=== PATIENT | male | born 1930 | race Caucasian/White ===

== ENCOUNTER 2016-05-21 11:48 | Inpatient (IN) ==
--- NOTE | 2016-05-21 12:18 | Emergency Department Note ---
Disposition Clinical Impression: Chest pain, Pulmonary embolism, Pulmonary hypertension, Frail elderly, Aortic aneurysm, Disease of prostate, Kidney disease, Elevated troponin, Abnormal EKG, Bladder disease Disposition: Admitted As Inpatient Condition: Fair General Adult HPI - General Chief complaint: ED General Medical Stated complaint: Sent from 's office/Seen for blood Clots Time Seen by Provider: 05/21/16 12:10 - History of Present Illness HPI Narrative: 85-year-old male who developed chest pain and was seen in the emergency department yesterday in the emergency department, he decided to leave the ED. He did have a chest CTA which showed pulmonary embolus. His primary care physician called him back and urged him to come back to the emergency department. Patient comes in today at the behest of his primary care physician with family members. The patient denies any abdominal pain vomiting or diarrhea no acute back pain. He states he has a history of chronic hematuria. He is not take blood thinners now. The patient has had no flank pain. No recent surgery or trauma. There is no history of confusion and headache neck stiffness or fever. There is no history of difficulty moving the arms or legs independently no leg swelling or pain or coughing up blood. The patient has not had blood clots in the past. There is no history of acute shortness of breath. The patient denies any chest pain now but did have chest pain yesterday. It is no history of fever. No history of bleeding. No history of recent trauma. Onset (ago): day(s) - Related Data Previous Rx's Medication Instructions Recorded Rivaroxaban [Xarelto] 15 mg PO BID 15 Days 05/21/16 Allergies Allergy/AdvReac Type Severity Reaction Status Date / Time No Known Allergies Allergy Verified 05/20/16 23:40 All systems ED: reviewed and negative except as stated. Past Medical History - Past Medical History Medical history: Reports: asthma, hyperlipidemia, hypertension, myocardial infarction Psychiatric history: Reports: anxiety, depression - Social History Smoking Status: Current every day smoker Smokeless Tobacco Status: No Alcohol use: Reports: occasionally Drug use: Reports: none Physical Exam - General Limitations: no limitations General appearance: alert, in no apparent distress - Head Head exam: atraumatic, normocephalic, normal inspection - Eye Eye exam: Present: normal appearance, PERRL, EOMI. Absent: scleral icterus, conjunctival injection, miosis, mydriasis - ENT ENT exam: normal exam, normal oropharynx, mucous membranes moist - Neck Neck exam: Present: normal inspection, full ROM, trachea midline - Chest Chest inspection: Present: symmetric chest wall rise. Absent: tenderness, rash - Respiratory Respiratory exam: Present: normal lung sounds bilaterally. Absent: respiratory distress - Cardiovascular Cardiovascular exam: Present: regular rate, irregular rhythm - Abdominal Exam Abdominal exam: Present: soft, Non-Tender. Absent: tenderness, distention, guarding, rebound, rigidity, pulsatile mass - Extremities Exam Extremities exam: Present: normal inspection, full ROM, normal capillary refill. Absent: tenderness, pedal edema, joint swelling, calf tenderness - Expanded Lower Extremity Exam Lower leg exam: Absent: Homans' sign Neurovascular/Tendon exam: Absent: motor deficit, sensory deficit, tendon deficit, extremity cold to touch - Back Exam Back exam: Present: normal inspection, full ROM. Absent: tenderness, CVA tenderness (R), CVA tenderness (L), vertebral tenderness - Neurological Exam Neurological exam: Present: alert, oriented X3, CN II-XII intact. Absent: motor sensory deficit - Psychiatric Psychiatric exam: Present: normal affect, normal mood - Skin Skin exam: Present: warm, dry, intact, normal color. Absent: rash, cyanosis, diaphoresis, erythema, pallor, mottled Course Vital Signs Temperature 97.8 F 05/21/16 12:13 Pulse Rate 60 05/21/16 12:13 Respiratory Rate 14 05/21/16 12:13 Blood Pressure 152/58 05/21/16 12:13 O2 Sat by Pulse Oximetry 99 05/21/16 12:13 Temperature 97.8 F 05/21/16 12:13 Pulse Rate 52 05/21/16 13:21 Respiratory Rate 14 05/21/16 13:21 Blood Pressure 152/65 05/21/16 13:21 O2 Sat by Pulse Oximetry 97 05/21/16 13:21 Oxygen Delivery Oxygen Delivery Room Air Medical Decision Making - [facility] Narrative Medical decision making narrative: The patient was given aspirin here, he has a pulmonary embolus, of note his CT scan shows multiple abnormalities, possible renal mass, aortic aneurysm, bladder abnormalities, the patient describes hematuria. Given his comorbidities and complaints of hematuria, caution is warranted regarding his anticoagulation therapy. The patient appears to be stable. He is not expressing chest pain now there is an element of right heart strain but the patient is not hypotensive or tachycardic. I have reviewed the case with the hospitalist on-call. The patient will certainly require admission for further multi-specialty evaluation and management. A urinalysis is pending. Anticoagulation per the hospitalist, she has recommended heparin recommended. Urinalysis pending. - Lab Data Lab results reviewed: Yes I reviewed the patient's lab results. Result diagrams: 05/21/16 12:35 05/21/16 12:35 Lab Results 05/21/16 05/21/16 05/21/16 Range/Units 12:35 12:35 12:35 WBC (4.3-11.1) K/mcL RBC (4.19-5.50) M/mcL Hgb (12.9-16.9) g/dL Hct (37.5-50.1) % MCV (83.0-100.0) fL MCH (28.0-33.3) pg MCHC (31.6-35.5) g/dL RDW (11.5-14.5) % Plt Count (140-400) K/mcL MPV (9.4-12.4) fL Immature Gran % (0-4) % Seg Neutrophils % % Lymphocytes % % Monocytes % % Eosinophils % % Basophils % % Neutrophils # (1.6-8.9) K/mcL Lymphocytes # (0.6-4.6) K/mcL Monocytes # (0.0-1.3) K/mcL Eosinophils # (0.0-0.6) K/mcL Basophils # (0.0-0.2) K/mcL PT 12.1 (9.4-12.1) Seconds INR 1.1 APTT 29.6 (26.0-36.0) Seconds Sodium (136-145) mEq/L Potassium (3.5-4.5) mEq/L Chloride (98-109) mEq/L Carbon Dioxide (19-29) mEq/L BUN (8-26) mg/dL Creatinine (0.72-1.25) mg/dL Est GFR ( Amer) (> 60) Est GFR (Non-Af Amer) (> 60) BUN/Creatinine Ratio (6-26) Glucose (70-99) mg/dL Calculated Osmolality (280-300) Calcium (8.6-10.8) mg/dL Total Bilirubin 0.5 (0.2-1.2) mg/dL Direct Bilirubin 0.2 (0.0-0.5) mg/dL Indirect Bilirubin 0.3 (0.0-1.2) mg/dL AST 20 (5-34) Units/L ALT 11 (0-55) Units/L Alkaline Phosphatase 52 (38-126) Units/L Troponin I (0-0.03) ng/mL B-Natriuretic Peptide 699 H (0-100) pg/mL Serum Total Protein 5.6 L (6.0-8.3) g/dL Albumin 3.1 L (3.5-5.0) g/dL Globulin 2.5 (2.4-3.5) g/dL Albumin/Globulin Ratio 1.2 (1.1-2.2) Lipase 14 (8-78) Units/L 05/21/16 05/21/16 05/21/16 Range/Units 12:35 12:35 12:35 WBC 7.5 (4.3-11.1) K/mcL RBC 3.62 L (4.19-5.50) M/mcL Hgb 11.7 L (12.9-16.9) g/dL Hct 35.2 L (37.5-50.1) % MCV 97.2 (83.0-100.0) fL MCH 32.3 (28.0-33.3) pg MCHC 33.2 (31.6-35.5) g/dL RDW 13.2 (11.5-14.5) % Plt Count 139 L (140-400) K/mcL MPV 10.4 (9.4-12.4) fL Immature Gran % 0.4 (0-4) % Seg Neutrophils % 62.6 % Lymphocytes % 24.6 % Monocytes % 8.9 % Eosinophils % 3.1 % Basophils % 0.4 % Neutrophils # 4.7 (1.6-8.9) K/mcL Lymphocytes # 1.9 (0.6-4.6) K/mcL Monocytes # 0.7 (0.0-1.3) K/mcL Eosinophils # 0.2 (0.0-0.6) K/mcL Basophils # 0.0 (0.0-0.2) K/mcL PT (9.4-12.1) Seconds INR APTT (26.0-36.0) Seconds Sodium 145 (136-145) mEq/L Potassium 3.8 (3.5-4.5) mEq/L Chloride 110 H (98-109) mEq/L Carbon Dioxide 23 (19-29) mEq/L BUN 20 (8-26) mg/dL Creatinine 0.97 (0.72-1.25) mg/dL Est GFR ( Amer) > 60 (> 60) Est GFR (Non-Af Amer) > 60 (> 60) BUN/Creatinine Ratio 21 (6-26) Glucose 101 H (70-99) mg/dL Calculated Osmolality 303 H (280-300) Calcium 9.0 (8.6-10.8) mg/dL Total Bilirubin (0.2-1.2) mg/dL Direct Bilirubin (0.0-0.5) mg/dL Indirect Bilirubin (0.0-1.2) mg/dL AST (5-34) Units/L ALT (0-55) Units/L Alkaline Phosphatase (38-126) Units/L Troponin I 0.63 H* (0-0.03) ng/mL B-Natriuretic Peptide (0-100) pg/mL Serum Total Protein (6.0-8.3) g/dL Albumin (3.5-5.0) g/dL Globulin (2.4-3.5) g/dL Albumin/Globulin Ratio (1.1-2.2) Lipase (8-78) Units/L - Radiology Data Radiology results reviewed: Yes I reviewed the patient's radiology results.
[2016-05-21 12:42] LABS: Basophils % 0.4 %; Eosinophils # 0.2 K/mcL (0.0-0.6); Eosinophils % 3.1 %; Hematocrit 35.2 % (37.5-50.1); Hemoglobin 11.7 g/dL (12.9-16.9); Immature Granulocytes % 0.4 % (0-4); Lymphocytes # 1.9 K/mcL (0.6-4.6); Lymphocytes % 24.6 %; Mean Corpuscular HGB Conc 33.2 g/dL (31.6-35.5); Mean Corpuscular Hemoglobin 32.3 pg (28.0-33.3); Mean Corpuscular Volume 97.2 fL (83.0-100.0); Mean Platelet Volume 10.4 fL (9.4-12.4); Monocytes # 0.7 K/mcL (0.0-1.3); Monocytes % 8.9 %; Neutrophils # 4.7 K/mcL (1.6-8.9); Platelet Count 139 K/mcL (140-400); Red Blood Count 3.62 M/mcL (4.19-5.50); Red Cell Distribution Width 13.2 % (11.5-14.5); Segmented Neutrophils % 62.6 %
[2016-05-21 12:49] LABS: INR 1.1; Prothrombin Time 12.1 Seconds (9.4-12.1)
[2016-05-21 12:52] LABS: Activated Partial Thrombo Time 29.6 Seconds (26.0-36.0)
[2016-05-21] MEDS ORDERED: Aspirin 81 MG TAB.CHEW PO ONE (12:53)
[2016-05-21 13:02] LABS: BUN/Creatinine Ratio 21 (6-26); Blood Urea Nitrogen 20 mg/dL (8-26); Carbon Dioxide 23 mEq/L (19-29); Chloride 110 mEq/L (98-109); Glucose 101 mg/dL (70-99); Osmolality,Calculated 303 (280-300); Potassium 3.8 mEq/L (3.5-4.5); Sodium 145 mEq/L (136-145); eGFR For African Americans > 60 (> 60); eGFR For Non-African Americans > 60 (> 60)
[2016-05-21 13:03] LABS: Albumin 3.1 g/dL (3.5-5.0); Albumin/Globulin Ratio 1.2 (1.1-2.2); Bilirubin,Direct 0.2 mg/dL (0.0-0.5); Bilirubin,Indirect 0.3 mg/dL (0.0-1.2); Bilirubin,Total 0.5 mg/dL (0.2-1.2); Globulin 2.5 g/dL (2.4-3.5); Total Protein 5.6 g/dL (6.0-8.3)
[2016-05-21] MEDS ORDERED: *HR* Heparin 5,000 UNIT/ML VIAL IVP ONE (14:26)
[2016-05-21] MEDS ORDERED: *HR* Heparin 5,000 UNIT/ML VIAL IVP PRN ×2 (14:26)
[2016-05-21] MEDS: Heparin 25,000 UNIT/500 ML D5W 25,000 UNIT/500 ML MLS IVC SCH (14:39)
[2016-05-21 14:44] LABS: Bilirubin,Urine Negative (Negative); Blood,Urine Large (Negative); Clarity,Urine Cloudy (Clear); Glucose,Urine (UA) Normal (Normal); Ketones,Urine Negative (Negative); Leukocyte Esterase,Urine Trace (Negative); Nitrite,Urine Negative (Negative); PH,Urine 5.5 pH Units (5.0-8.0); Protein,Urine 100 mg/dL (Neg-Trace); Specific Gravity,Urine > 1.030 (1.010-1.025); Urobilinogen,Urine Normal (Normal)
[2016-05-21 14:45] LABS: Color,Urine Brown (Yellow)
[2016-05-21] MEDS ORDERED: Acetaminophen 325 MG TABLET PO PRN (14:50)
[2016-05-21] MEDS ORDERED: Ondansetron 4 MG/2 ML VIAL IVP PRN (14:50)
[2016-05-21] MEDS ORDERED: Naloxone 0.4 MG/ML INJ IVP PRN (14:50)
--- NOTE | 2016-05-21 15:51 | Internal Med History&Physical ---
Date of Encounter: 05/21/16 Time of Encounter: 14:00 Assessment and Plan (1) Pulmonary embolism on right Current visit: Yes Status: Acute 05/21/16: Right sided pulmonary emboli more severe within the right lower lobe. Enlargement of the main pulmonary artery suggestive of pulmonary arterial hypertension. EKG reviewed by me: sinus bradycardia heart rate 54. Continue heparin drip due to mild hematuria. Check venous Doppler of lower extremities and echocardiogram. 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 (2) Elevated troponin Current visit: Yes Status: Acute Troponin is 2.63. EKG showed TWI I, AVL. Likely secondary to acute PE. Trend troponin. EKG in AM. Cardiac monitoring. Check echocardiogram. (3) Hematuria Current visit: Yes Status: Acute Patient reports intermittent hematuria for the past few months. CT of the abdomen and pelvis revealed urothelial thickening of the right renal pelvis. Trabeculated urinary bladder wall likely secondary to chronic bladder outlet obstruction, prostatomegaly Chest monitor. Hemoglobin is 11.7. Start Flomax. Primary hospitalist may consider consulting urology service for further workup. (4) Aortic aneurysm Current visit: Yes Status: Acute CT of the abdomen and pelvis revealed infrarenal abdominal aortic aneurysm, 3.6 cm in diameter. Recommended one-year follow-up. CAT scan. Patient denies any abdominal pain. Qualifiers: Aortic location: abdominal aorta Presence of rupture: without rupture Qualified Code(s): I71.4 - Abdominal aortic aneurysm, without rupture (5) Disease of prostate Current visit: Yes Status: Acute BPH. Flomax as tolerated. (6) Pulmonary hypertension Current visit: Yes Status: Acute CT angiogram of the chest showed suspected pulmonary hypertension. Check echocardiogram. Internal Medicine - H&P: HPI Chief complaint: left sided chest pain since yesterday Admitted From: Home Plans for Post Hospital Care: Home History of present illness: Mr. Merida is a 85 year old male with past medical history hypertension, CAD, dementia and tobacco use. He presented yesterday to our ED with a chief complaint of left-sided chest pain and was diagnosed with atrial fibrillation with RVR and acute pulmonary embolism. Patient refused admission and left AGAINST MEDICAL ADVICE. This morning, his primary care physician convinced him to come back to our ED. Yesterday night, patient woke up because of left-sided chest pain that radiated to his left arm. He took 3 pills of nitroglycerin without any relief. No shortness of breath. No syncope. No abdominal pain. No dysuria. No focal deficit. No headache. No history of prior intracranial bleeding. He also complains of intermittent chronic hematuria for months but it has worsened in the past 3 days. He had an episode of nephrolithiasis past but refused any treatment. No family history of DVT. In our ED, he was started on heparin drip. Past Med Surg Social Fam HX - Past Medical History Medical history: asthma, hyperlipidemia, hypertension, myocardial infarction Psychiatric history: anxiety, depression - Social History Smoking Status: Current every day smoker Smokeless Tobacco Status: No Alcohol use: occasionally Drug use: none Internal Medicine - H&P: Meds Albuterol Sulfate [Proair Hfa] 2 puff IH Q6H PRN 05/21/16 [History] Alprazolam [Xanax 1 MG Tablet] 1 mg PO QAM 05/21/16 [History] Aspirin [Lo-Dose Aspirin EC] 81 mg PO DAILY 05/21/16 [History] Atenolol [Tenormin] 50 mg PO DAILY 05/21/16 [History] Atorvastatin Calcium [Lipitor] 80 mg PO DAILY 05/21/16 [History] Citalopram [CeleXA] 20 mg PO DAILY 05/21/16 [History] Donepezil [Aricept] 5 mg PO HS 05/21/16 [History] Folic Acid 1 mg PO DAILY 05/21/16 [History] Ginkgo Biloba 120 mg PO DAILY 05/21/16 [History] Ibuprofen [Motrin] 800 mg PO BID 05/21/16 [History] Isosorbide DInitrate [Isosorbide Dinitrate] 20 mg PO TID 05/21/16 [History] Multivit-Min/FA/Lycopen/Lutein [Centrum Silver Tablet] 1 tab PO DAILY 05/21/16 [ History] PredniSONE [Deltasone] 20 mg PO DAILY 05/21/16 [History] Ranitidine HCl [Acid Fiberglass Roller] 150 mg PO BID 05/21/16 [History] Temazepam [Restoril] 30 mg PO HS 05/21/16 [History] TraZODone 100 mg PO HS 05/21/16 [History] Allergies No Known Allergies Allergy (Verified 05/20/16 23:40) All Systems PM: A 10-system review of systems was performed and is negative for pertinent findings except as documented above in the HPI. - Constitutional Vitals: Temp Pulse Resp BP Pulse Ox 97.8 F 52 0 0/0 97 05/21/16 12:13 05/21/16 13:21 05/21/16 14:51 05/21/16 14:51 05/21/16 13:21 General appearance: Present: cooperative, A&O X 3, pleasant, answers questions appropriately. Absent: no acute distress - Neck Neck exam general surgery: Present: supple, trachea midline. Absent: lymphadenopathy - Respiratory Respiratory exam: Present: rales ( bases) - Cardiovascular Cardiovascular exam: Present: RRR - GI/Abdominal GI/Abdominal exam: Present: normal bowel sounds, soft. Absent: distended, tenderness - Extremities Exam Extremities exam: Absent: pedal edema - Back Exam Back exam: Absent: CVA tenderness (L), CVA tenderness (R) - Neurological Exam Neurological exam: Present: alert, no focal deficits. Absent: facial droop, speech deficit - Skin Skin exam: Absent: rash Internal Med - H&P Results - Labs CBC & Chem 7: 05/21/16 12:35 05/21/16 12:35 Labs: Urine 05/21/16 Range/Units 14:30 Urine Color Brown (Yellow) Urine Clarity Cloudy A (Clear) Urine pH 5.5 (5.0-8.0) pH Units Ur Specific [place] > 1.030 H (1.010-1.025) Urine Protein 100 H (Neg-Trace) mg/dL Urine Glucose (UA) Normal (Normal) mg/dL
[2016-05-21] MEDS: Ipratropium/Albuterol Neb 3 ML IH SCH ×2 (16:33→21:29)
[2016-05-21] MEDS ORDERED: 0.9 % Sodium Chloride 2,000 ML ONE (18:58)
--- NOTE | 2016-05-21 19:29 | Urology - Consult Note ---
Date of Encounter: 05/21/16 Time of Encounter: 19:29 - Assessment and Plan (1) Right kidney stone Current Visit: Yes Status: Acute Assessment and plan: could be cause of hematuria. very large stone. will observe at this time. (2) Hematuria Current Visit: Yes Status: Acute Assessment and plan: Patient was prepped and draped in normal sterile fashion. A 11 mL's of lidocaine was instilled into the patient's urethra. I then placed the 24- Tristanian Bard hematuria catheter. I then manually irrigated the catheter with no clots returned. Patient was then hooked to continuous bladder irrigation with normal saline. Will continue with 3-way catheter. Okay to resume treatment for pulmonary embolism. We will observe closely. Urology CN:HPI Consult date: 05/21/16 Reason for consult Urology: Gross Hematuria Requesting physician: Seble Kohler History of present illness: Gilbert is an 85-year-old male with a history of admission secondary to pulmonary embolism. Patient was started on blood thinners and started to have worsening gross hematuria. He states over the past few weeks he has had some gross hematuria. He is known to me where in 2013 and diagnosed him with a large right-sided renal stone which was never treated. Patient is unsure why he never followed up to have this treated. He has not had any flank pain. Past Med Surg Social Fam HX - Past Medical History Medical history: asthma, hyperlipidemia, hypertension, myocardial infarction Psychiatric history: anxiety, depression - Social History Smoking Status: Current every day smoker Smokeless Tobacco Status: No Alcohol use: occasionally Drug use: none Medications and Allergies Albuterol Sulfate [Proair Hfa] 2 puff IH Q6H PRN 05/21/16 [History] Alprazolam [Xanax 1 MG Tablet] 1 mg PO QAM 05/21/16 [History] Aspirin [Lo-Dose Aspirin EC] 81 mg PO DAILY 05/21/16 [History] Atenolol [Tenormin] 50 mg PO DAILY 05/21/16 [History] Atorvastatin Calcium [Lipitor] 80 mg PO DAILY 05/21/16 [History] Citalopram [CeleXA] 20 mg PO DAILY 05/21/16 [History] Donepezil [Aricept] 5 mg PO HS 05/21/16 [History] Folic Acid 1 mg PO DAILY 05/21/16 [History] Ginkgo Biloba 120 mg PO DAILY 05/21/16 [History] Ibuprofen [Motrin] 800 mg PO BID 05/21/16 [History] Isosorbide DInitrate [Isosorbide Dinitrate] 20 mg PO TID 05/21/16 [History] Multivit-Min/FA/Lycopen/Lutein [Centrum Silver Tablet] 1 tab PO DAILY 05/21/16 [ History] PredniSONE [Deltasone] 20 mg PO DAILY 05/21/16 [History] Ranitidine HCl [Acid Electronics Mechanic] 150 mg PO BID 05/21/16 [History] Temazepam [Restoril] 30 mg PO HS 05/21/16 [History] TraZODone 100 mg PO HS 05/21/16 [History] Allergies No Known Allergies Allergy (Verified 05/20/16 23:40) Review of Systems - Constitutional no chills - EENT Nose, mouth and throat: no dizziness - Cardiovascular no chest pain - Respiratory as per HPI - Gastrointestinal no abdominal pain - Genitourinary as per HPI - Musculoskeletal no back pain - Integumentary no erythema - Neurological no confusion - Psychiatric no anxiety - Hematologic/Lymphatic no easy bleeding - Allergic/Immunologic no throat swelling Exam Initial Vital Signs Temp Pulse Resp BP Pulse Ox 97.8 F 60 14 152/58 99 05/21/16 12:13 05/21/16 12:13 05/21/16 12:13 05/21/16 12:13 05/21/16 12:13 - General physical appearance Present: well developed - Eyes Present: PERRL - ENT Present: normal nares - Neck Present: no masses - Respiratory Present: normal respiratory effort - Cardiovascular Cardiovascular exam IM: bradycardia - Abdomen Abdomen: Present: soft - Genitourinary normal penis with no external lesions - Integumentary Present: no rash - Neurologic Present: normal coordination Urology Results - Labs 05/21/16 12:35 05/21/16 12:35 Abnormal lab results RBC 3.62 M/mcL (4.19-5.50) L 05/21/16 12:35 Hgb 11.7 g/dL (12.9-16.9) L 05/21/16 12:35 Hct 35.2 % (37.5-50.1) L 05/21/16 12:35 Plt Count 139 K/mcL (140-400) L 05/21/16 12:35 Chloride 110 mEq/L (98-109) H 05/21/16 12:35 Glucose 101 mg/dL (70-99) H 05/21/16 12:35 Calculated Osmolality 303 (280-300) H 05/21/16 12:35 Troponin I 0.63 ng/mL (0-0.03) H* 05/21/16 12:35 B-Natriuretic Peptide 699 pg/mL (0-100) H 05/21/16 12:35 Serum Total Protein 5.6 g/dL (6.0-8.3) L 05/21/16 12:35 Albumin 3.1 g/dL (3.5-5.0) L 05/21/16 12:35 Ur Specimen Adequacy See below A 05/21/16 14:30 Urine Clarity Cloudy (Clear) A 05/21/16 14:30 Ur Specific [place] > 1.030 (1.010-1.025) H 05/21/16 14:30 Urine Protein 100 mg/dL (Neg-Trace) H 05/21/16 14:30 Urine Blood Large (Negative) H 05/21/16 14:30 Ur Leukocyte Esterase Trace (Negative) H 05/21/16 14:30 Ur Culture Indicated? YES (NO) A 05/21/16 14:30 All other labs normal. - Imaging CT scan - abdomen: image reviewed CT scan - pelvis: image reviewed Consult Discharge Plan - Plan Referrals: Pavan Maya Jr, MD [Primary Care Provider] -
[2016-05-21] MEDS: Finasteride 5 MG TABLET PO SCH (20:52)
[2016-05-21] MEDS: traZODone 50 MG TABLET PO SCH (21:03)
[2016-05-21] MEDS: Temazepam 15 MG CAPSULE PO PRN (22:53)
[2016-05-22] MEDS: Lidocaine OINT 35.44 GM TUBE TP PRN (01:21)
[2016-05-22] MEDS: Ipratropium/Albuterol Neb 3 ML IH SCH ×2 (03:37→10:51)
[2016-05-22 05:39] LABS: Basophils % 0.4 %; Eosinophils # 0.3 K/mcL (0.0-0.6); Eosinophils % 2.3 %; Hematocrit 33.3 % (37.5-50.1); Hemoglobin 10.9 g/dL (12.9-16.9); Immature Granulocytes % 0.5 % (0-4); Lymphocytes # 1.4 K/mcL (0.6-4.6); Lymphocytes % 12.3 %; Mean Corpuscular HGB Conc 32.7 g/dL (31.6-35.5); Mean Corpuscular Hemoglobin 31.5 pg (28.0-33.3); Mean Corpuscular Volume 96.2 fL (83.0-100.0); Mean Platelet Volume 11.1 fL (9.4-12.4); Monocytes # 0.9 K/mcL (0.0-1.3); Monocytes % 8.5 %; Neutrophils # 8.4 K/mcL (1.6-8.9); Platelet Count 132 K/mcL (140-400); Red Blood Count 3.46 M/mcL (4.19-5.50); Red Cell Distribution Width 13.1 % (11.5-14.5)
[2016-05-22 06:06] LABS: BUN/Creatinine Ratio 22 (6-26); Blood Urea Nitrogen 17 mg/dL (8-26); Calcium 8.7 mg/dL (8.6-10.8); Carbon Dioxide 23 mEq/L (19-29); Chloride 107 mEq/L (98-109); Glucose 122 mg/dL (70-99); Magnesium 1.4 mg/dL (1.6-2.6); Osmolality,Calculated 287 (280-300); Potassium 4.1 mEq/L (3.5-4.5); Sodium 137 mEq/L (136-145); eGFR For African Americans > 60 (> 60); eGFR For Non-African Americans > 60 (> 60)
--- NOTE | 2016-05-22 06:58 | Urology Progress Note ---
Date of Encounter: 05/22/16 Time of Encounter: 06:57 - Assessment and Plan (1) Right kidney stone Current Visit: Yes Status: Acute (2) Hematuria Current Visit: Yes Status: Acute Assessment and plan: stable on irrigation. will continue to observe. continue finasteride. Progress Note Narrative: doing well on irrigation. was confused last night and got up to use the bathroom and pulled slightly on cath. urine slightly pink on slow irrigation. Objective Initial Vital Signs Temp Pulse Resp BP Pulse Ox 97.8 F 60 14 152/58 99 05/21/16 12:13 05/21/16 12:13 05/21/16 12:13 05/21/16 12:13 05/21/16 12:13 - General physical appearance Present: well developed - Abdomen Present: soft - Genitourinary Present: other (urine light pink on slow irrigation) - Labs 05/22/16 05:12 05/22/16 05:12 Diabetes panel 05/22/16 Range/Units 05:12 Sodium 137 D (136-145) mEq/L Potassium 4.1 (3.5-4.5) mEq/L Chloride 107 (98-109) mEq/L Carbon Dioxide 23 (19-29) mEq/L BUN 17 (8-26) mg/dL Creatinine 0.78 (0.72-1.25) mg/dL Glucose 122 H (70-99) mg/dL Calcium 8.7 (8.6-10.8) mg/dL Calcium panel 05/22/16 Range/Units 05:12 Calcium 8.7 (8.6-10.8) mg/dL Pituitary panel 05/22/16 Range/Units 05:12 Sodium 137 D (136-145) mEq/L Potassium 4.1 (3.5-4.5) mEq/L Chloride 107 (98-109) mEq/L Carbon Dioxide 23 (19-29) mEq/L BUN 17 (8-26) mg/dL Creatinine 0.78 (0.72-1.25) mg/dL Glucose 122 H (70-99) mg/dL Calcium 8.7 (8.6-10.8) mg/dL Adrenal panel 05/22/16 Range/Units 05:12 Sodium 137 D (136-145) mEq/L Potassium 4.1 (3.5-4.5) mEq/L Chloride 107 (98-109) mEq/L Carbon Dioxide 23 (19-29) mEq/L BUN 17 (8-26) mg/dL Creatinine 0.78 (0.72-1.25) mg/dL Glucose 122 H (70-99) mg/dL Calcium 8.7 (8.6-10.8) mg/dL Consult Discharge Plan - Plan Referrals: Pavan Maya Jr, MD [Primary Care Provider] -
[2016-05-22] MEDS: predniSONE 20 MG TABLET PO SCH (07:49)
[2016-05-22] MEDS: Folic Acid 1 MG TABLET PO SCH (07:49)
[2016-05-22] MEDS: ALPRAZolam 1 MG TABLET PO SCH (07:49)
[2016-05-22] MEDS: Aspirin Enteric Coated 81 MG Tablet PO SCH (07:49)
[2016-05-22] MEDS: Finasteride 5 MG TABLET PO SCH (07:49)
--- NOTE | 2016-05-22 08:14 | Internal Med Progress Note ---
Date of Encounter: 05/22/16 Time of Encounter: 08:12 - Assessment and plan (1) Pulmonary embolism on right Current Visit: Yes Status: Acute Assessment and plan: Continue heparin drip and start Coumadin Monitor CBC due to hematuria High risk of complications from pulmonary emboli and hematuria (2) Bradycardia Current Visit: Yes Status: Acute Assessment and plan: Likely secondary to beta blockers Decreased the dose of Lopressor (3) Aortic aneurysm Current Visit: Yes Status: Acute Assessment and plan: Follow as outpatient with CT scan in a year Qualifiers: Aortic location: abdominal aorta Presence of rupture: without rupture Qualified Code(s): I71.4 - Abdominal aortic aneurysm, without rupture (4) Elevated troponin Current Visit: Yes Status: Acute Assessment and plan: Likely secondary to demand ischemia. First troponin was 0.63 and the second one 0.29 (5) Hematuria Current Visit: Yes Status: Acute Assessment and plan: Followed by urology Continue Cullen catheter with irrigation (6) Pulmonary hypertension Current Visit: Yes Status: Acute (7) Atrial fibrillation and flutter Current Visit: No Status: Acute Assessment and plan: Signed AGAINST MEDICAL ADVICE the day prior to admission when he presented with Dennise nielson with RVR likely provoked by pulmonary emboli Now is bradycardic Decrease metoprolol from 50 mediums twice a day down to 25 mg twice a day due to bradycardia Consider cardiology consult if worse (8) Nephrolithiasis Current Visit: Yes Status: Acute Assessment and plan: Has a large renal calculus on the right kidney Follow with urology as an outpatient - Time Spent With Patient Greater than 35 minutes - Subjective Interval history: Got confused last night, denies any chest pain, shortness of breath, no abdominal pain, no dysuria. Had chest pain on the left side upon admission but is asymptomatic at the moment. Hematuria is controlled at the moment. No diarrhea - Constitutional Vitals: Temp Pulse Resp BP Pulse Ox 98.1 F 72 16 161/92 96 05/22/16 04:18 05/22/16 04:18 05/22/16 04:18 05/22/16 04:18 05/22/16 07:58 General appearance: Present: cooperative, A&O X 3, pleasant, answers questions appropriately. Absent: no acute distress - Head Head exam: Present: atraumatic, normocephalic - Eye Eye exam: Present: PERRL, conjuntiva pink, sclera anicteric Pupils: Present: PERRL - Neck Neck exam general surgery: Present: supple, trachea midline. Absent: lymphadenopathy - Respiratory Respiratory exam: Present: CTAB. Absent: accessory muscle use, rales, rhonchi, wheezes - Cardiovascular Cardiovascular exam: Present: bradycardia, irregular rhythm, RRR, +S1, +S2. Absent: diastolic murmur, gallop, rubs, systolic murmur - GI/Abdominal GI/Abdominal exam: Present: normal bowel sounds, soft, no peritoneal signs. Absent: distended, tenderness - Extremities Exam Extremities exam: Present: warm, radial pulses palpable and symetrical. Absent : calf tenderness, cyanotic, pedal edema - Neurological Exam Neurological exam: Present: CN II-XII intact, oriented X3, no focal deficits. Absent: pronater drift, facial droop, speech deficit Additional comments: Cullen catheter in place - Skin Skin exam: Present: dry, intact Internal Medicine: Result - Labs CBC & Chem 7: 05/22/16 05:12 05/22/16 05:12 Labs: Short CBC 05/22/16 Range/Units 05:12 WBC 11.1 (4.3-11.1) K/mcL Hgb 10.9 L (12.9-16.9) g/dL Hct 33.3 L (37.5-50.1) % Plt Count 132 L (140-400) K/mcL Neutrophils # 8.4 (1.6-8.9) K/mcL BMP 05/22/16 05:12 Sodium 137 D Potassium 4.1 Chloride 107 Carbon Dioxide 23 BUN 17 Creatinine 0.78 Glucose 122 H Calcium 8.7 Cardiac Enzymes 05/22/16 Range/Units 05:12 Troponin I 0.29 H* (0-0.03) ng/mL Urine 05/21/16 Range/Units 14:30 Urine Color Brown (Yellow) Urine Clarity Cloudy A (Clear) Urine pH 5.5 (5.0-8.0) pH Units Ur Specific Lackey > 1.030 H (1.010-1.025) Urine Protein 100 H (Neg-Trace) mg/dL Urine Glucose (UA) Normal (Normal) mg/dL - ABG Interpretation ABG results: PT/INR, D-dimer PT 12.1 Seconds (9.4-12.1) 05/21/16 12:35 Consult Discharge Plan - Plan Referrals: Pavan Maya Jr, MD [Primary Care Provider] -
--- NOTE | 2016-05-22 11:20 | Electrocardiograph Report ---
[place] Test Date: 2016-05-21 Pat Name: Gilbert Merida Department: 105 Room: 2A12 Gender: M Extra Hand: : 1930 Requested By: Westley England Order Number: [id number] Reading MD: Jose Cruz Cortés MD Measurements Intervals [place] Rate: 130 P: [place]: 0 QRS: -14 QRSD: 101 T: 35 QT: 334 QTc: 411 Interpretive Statements ATRIAL FLUTTER/TACHYCARDIA WITH RAPID VENTRICULAR RESPONSE NONSPECIFIC ST \T\ T-WAVE ABNORMALITY ABNORMAL RHYTHM ECG Electronically Signed On 05-22-2016 11:18:31 EST by Jose Cruz Cortés MD
[2016-05-22] MEDS ORDERED: Albuterol 2.5 MG/3 ML NEBULIZER IH PRN (13:37)
--- NOTE | 2016-05-22 15:16 | ECHO - Doppler Report ---
Echocardiogram Name: Gilbert Merida Date of Study: 05/22/2016 Date: 1930 Ht: 70.0 in Medical Record#: [id number] Age: 85 Wt: 149.0 lb Gender: Male BSA: 1.84 Order #: [id number] Location: [facility] Room #: 2A12 Reading Physician: Jojo Perkins DO Angle Shear Operator: Hermila Laguna T Ordering Physician: Seble Kohler MD Primary Physician: Pavan Maya MD Indications: Arrhythmia Impressions: LVEF 55%. Normal left ventricular size and systolic function. Normal right ventricular size and function. Mild aortic regurgitation. Mild mitral regurgitation. No pulmonary hypertension. Left Ventricular Wall Motion: Rest Echo Findings All wall segments showed normal motion. Findings: Study Quality * Technically sub-optimal due to clinical status. ECG Findings * Sinus bradycardia with ventricular ectopy. Left Atrium * Normal left atrial size. Mitral Valve * Normal mitral valve structure. * No mitral stenosis. * Mild mitral regurgitation. Aortic Valve * Mild aortic regurgitation. * Aortic valve not well visualized. * No aortic stenosis. Tricuspid Valve * Tricuspid valve not well visualized. * Trace tricuspid regurgitation. Pulmonic Valve * Not well evaluated. Right Ventricle * Normal right ventricular structure and function. Right Atrium * Normal right atrial size. Left Ventricle * LVEF 55%. * Indeterminate diastolic function. * Normal LV chamber size, wall thickness and function. Interatrial Septum * Interatrial septum not well evaluated. Pulmonary Artery * Pulmonary artery not well visualized. IVC * The IVC is not well evaluated. Pericardium * There is no pericardial effusion present. Aorta * Normally sized aortic root. History Family History of CAD History of CAD/PTCA Myocardial Infarction Measurements: BP: 154/ 70 2D Normal Values IVSd: 1.00 cm 0.6 - 1.0 cm LVIDd: 5.30 cm 3.7 - 5.6 cm LVPWd: 1.00 cm 0.6 - 1.1 cm LVIDs: 3.60 cm 1.5 - 3.6 cm AO: 3.20 cm < 4.0 cm LA: 3.70 cm 2.0 - 4.0cm %FS: 32.10 cm >25 % LA volume: 99 Mitral Valve Dec Time:408.00 msec Peak E:.42 m/sec Peak A:.67 m/sec E/A Ratio:0.6 E/E' Lat Ratio:8.1 E/E' Med Ratio:9.8 Tricuspid Valve TV Regurg Peak Grad: 21.00mmHg TV Regurg Peak Olegario: 2.27m/sec Updated by Jojo Perkins on 05/22/2016 3:11:09 PM electronically signed on 05/22/2016 3:12:10 PM with status of Final Wall Motion Sanchez: 1=Normal, 2=Hypokinesis, 3=Akinesis, 4=Dyskinesis, 5=Aneurysmal, 6=Hyperkinetic, X=Not Visualized (Blank)=Missing
--- NOTE | 2016-05-22 16:22 | Venous Imaging Report ---
LE Venous Duplex Patient Name:Gilbert Merida Order Number:[id number] Procedure Date:05/21/2016 Date:1930ge:85 yrs Gender:Male Location:[facility] Room #: 2A12 Solutions Sales Executive:Adrienne Homerosharon Referring MD:Seble Kohler MD university controller:Pavan Maya MD Reading MD:Janusz Anders MD Primary Indications:acute PE Secondary Indications: Risk Factors Yes/No Anticoagulants Yes Impressions: Bilateral lower extremity: normal superficial and deep exam. Findings Venous Duplex Results: Right: Venous imaging of the lower extremity reveals full patency and normal vessel compressibility of the right distal iliac, right common femoral, right superficial femoral, right popliteal, right posterior tibial, right peroneal, right great saphenous and right lesser saphenous. Doppler signals in the evaluated veins were normal. Left: Venous imaging of the lower extremity reveals full patency and normal vessel compressibility of the left distal iliac, left common femoral, left superficial femoral, left popliteal, left posterior tibial, left peroneal, left great saphenous and left lesser saphenous. Doppler signals in the evaluated veins were normal. Prior Study: No prior study available for comparison. Lower Extremity Venous Duplex Side Vein Compress Spontaneous Flow Augment Diameter (cm) Depth (cm) Right Distal Iliac Normal Yes Phasic Yes Right Common Femoral Normal Yes Phasic Yes Right Superficial Femoral Normal Yes Phasic Yes Right Popliteal Normal Yes Phasic Yes Right Posterior Tibial Normal Yes Phasic Yes Right Peroneal Normal Yes Phasic Yes Right Great Saphenous Normal Yes Phasic Yes Right Lesser Saphenous Normal Yes Phasic Yes Left Distal Iliac Normal Yes Phasic Yes Left Common Femoral Normal Yes Phasic Yes Left Superficial Femoral Normal Yes Phasic Yes Left Popliteal Normal Yes Phasic Yes Left Posterior Tibial Normal Yes Phasic Yes Left Peroneal Normal Yes Phasic Yes Left Great Saphenous Normal Yes Phasic Yes Left Lesser Saphenous Normal Yes Phasic Yes Updated by Janusz Anders MD on 05/22/2016 4:16:18 PM electronically signed on 05/22/2016 4:16:33 PM with status of Final
[2016-05-22] MEDS: *HR* Warfarin 5 MG TABLET PO SCH (17:51)
[2016-05-22] MEDS ORDERED: Warfarin perPT PO PRN (18:00)
[2016-05-22] MEDS: traZODone 50 MG TABLET PO SCH (20:53)
[2016-05-22] MEDS: Heparin 25,000 UNIT/500 ML D5W 25,000 UNIT/500 ML MLS IVC SCH (20:55)
[2016-05-22] MEDS: Temazepam 15 MG CAPSULE PO PRN (21:54)
[2016-05-23 06:50] LABS: Hematocrit 33.3 % (37.5-50.1); Mean Corpuscular Hemoglobin 31.4 pg (28.0-33.3); Mean Corpuscular Volume 95.1 fL (83.0-100.0); Mean Platelet Volume 11.4 fL (9.4-12.4); Platelet Count 132 K/mcL (140-400)
[2016-05-23 06:53] LABS: INR 1.2; Prothrombin Time 13.3 Seconds (9.4-12.1)
--- NOTE | 2016-05-23 07:03 | Urology Progress Note ---
Date of Encounter: 05/23/16 Time of Encounter: 07:02 - Assessment and Plan (1) Right kidney stone Current Visit: Yes Status: Acute (2) Hematuria Current Visit: Yes Status: Acute Assessment and plan: will reeval this afternoon. continue CBI at this time. Progress Note Narrative: sp cath placement for hematuria. patient remiains confused. Objective Initial Vital Signs Temp Pulse Resp BP Pulse Ox 97.8 F 60 14 152/58 99 05/21/16 12:13 05/21/16 12:13 05/21/16 12:13 05/21/16 12:13 05/21/16 12:13 - Abdomen Present: soft - Genitourinary Present: other (urine slightly bloody in tubing on medium drip. ) - Labs 05/23/16 05:18 05/22/16 05:12 Consult Discharge Plan - Plan Referrals: Pavan Maya Jr, MD [Primary Care Provider] -
[2016-05-23 07:08] LABS: BUN/Creatinine Ratio 23 (6-26); Blood Urea Nitrogen 18 mg/dL (8-26); Calcium 9.1 mg/dL (8.6-10.8); Carbon Dioxide 27 mEq/L (19-29); Chloride 105 mEq/L (98-109); Glucose 108 mg/dL (70-99); Osmolality,Calculated 292 (280-300); Potassium 4.3 mEq/L (3.5-4.5); Sodium 140 mEq/L (136-145); eGFR For African Americans > 60 (> 60); eGFR For Non-African Americans > 60 (> 60)
[2016-05-23] MEDS: Aspirin Enteric Coated 81 MG Tablet PO SCH (07:48)
[2016-05-23] MEDS: Folic Acid 1 MG TABLET PO SCH (07:48)
[2016-05-23] MEDS: predniSONE 20 MG TABLET PO SCH (07:48)
[2016-05-23] MEDS: ALPRAZolam 1 MG TABLET PO SCH (07:48)
[2016-05-23] MEDS: Finasteride 5 MG TABLET PO SCH (07:48)
--- NOTE | 2016-05-23 09:04 | Internal Med Progress Note ---
Date of Encounter: 05/23/16 Time of Encounter: 09:02 - Assessment and plan (1) Pulmonary embolism on right Current Visit: Yes Status: Acute Assessment and plan: Continue heparin drip and Coumadin Keep APTT close to 50 Monitor CBC due to hematuria High risk of complications from pulmonary emboli and hematuria (2) Bradycardia Current Visit: Yes Status: Acute Assessment and plan: Likely secondary to beta blockers Decreased dose of Beta nathanael, the patient takes atenolol 50 mg at home start 25 mg in the morning (3) Aortic aneurysm Current Visit: Yes Status: Acute Assessment and plan: Follow as outpatient with CT scan in a year Qualifiers: Aortic location: abdominal aorta Presence of rupture: without rupture Qualified Code(s): I71.4 - Abdominal aortic aneurysm, without rupture (4) Elevated troponin Current Visit: Yes Status: Acute Assessment and plan: Likely secondary to demand ischemia. First troponin was 0.63 and the second one 0.29 (5) Hematuria Current Visit: Yes Status: Acute Assessment and plan: Followed by urology Continue Cullen catheter with irrigation (6) Pulmonary hypertension Current Visit: Yes Status: Acute (7) Atrial fibrillation and flutter Current Visit: No Status: Acute Assessment and plan: Signed AGAINST MEDICAL ADVICE the day prior to admission when he presented with A. fib with RVR likely provoked by pulmonary emboli Still bradycardic Decrease atenolol down to 25 mg daily due to bradycardia Consider cardiology consult if worse (8) Nephrolithiasis Current Visit: Yes Status: Acute Assessment and plan: Has a large renal calculus on the right kidney Follow with urology as an outpatient - Time Spent With Patient Greater than 35 minutes - Subjective Interval history: Cullen catheter is still showing signs of bleeding. Confused at times, denies any chest pain, shortness of breath, no abdominal pain , no dysuria. Had chest pain on the left side upon admission but is asymptomatic at the moment. No diarrhea - Constitutional Vitals: Temp Pulse Resp BP Pulse Ox 97.7 F 50 14 167/77 97 05/23/16 07:01 05/23/16 07:01 05/23/16 07:01 05/23/16 07:01 05/23/16 07:56 General appearance: Present: cooperative, A&O X 3, pleasant, underweight, answers questions appropriately. Absent: no acute distress - Head Head exam: Present: atraumatic, normocephalic - Eye Eye exam: Present: PERRL, conjuntiva pink, sclera anicteric Pupils: Present: PERRL - Neck Neck exam general surgery: Present: supple, trachea midline. Absent: lymphadenopathy - Respiratory Respiratory exam: Present: decreased breath sounds, CTAB. Absent: accessory muscle use, rales, rhonchi, wheezes - Cardiovascular Cardiovascular exam: Present: RRR, +S1, +S2. Absent: diastolic murmur, gallop, rubs, systolic murmur - GI/Abdominal GI/Abdominal exam: Present: distended, normal bowel sounds, soft, no peritoneal signs. Absent: tenderness - Extremities Exam Extremities exam: Present: warm, radial pulses palpable and symetrical. Absent : calf tenderness, cyanotic, pedal edema - Neurological Exam Neurological exam: Present: CN II-XII intact, oriented X3, no focal deficits. Absent: pronater drift, facial droop, speech deficit - Skin Skin exam: Present: dry, intact Additional comments: Cullen catheter in place with pinkish urine Internal Medicine: Result - Labs CBC & Chem 7: 05/23/16 05:18 05/23/16 05:18 Labs: Short CBC 05/23/16 Range/Units 05:18 WBC 11.2 H (4.3-11.1) K/mcL Hgb 11.0 L (12.9-16.9) g/dL Hct 33.3 L (37.5-50.1) % Plt Count 132 L (140-400) K/mcL BMP 05/23/16 05:18 Sodium 140 Potassium 4.3 Chloride 105 Carbon Dioxide 27 BUN 18 Creatinine 0.77 Glucose 108 H Calcium 9.1 - ABG Interpretation ABG results: PT/INR, D-dimer PT 13.3 Seconds (9.4-12.1) H 05/23/16 05:18 Consult Discharge Plan - Plan Referrals: Pavan Maya Jr, MD [Primary Care Provider] -
[2016-05-23] MEDS ORDERED: Sennosides/Docusate Sodium TABLET PO PRN (12:01)
--- NOTE | 2016-05-23 15:05 | Electrocardiograph Report ---
[address] [address] Test Date: 2016-05-22 Pat Name: Gilbert Merida Department: 112 Room: 2A12 Gender: M Padding Machine Operator: : 1930 Requested By: Tushar Min Order Number: [id number] Reading MD: Chanel Richey Measurements Intervals [place] Rate: 65 P: 61 OR: 202 QRS: -24 QRSD: 108 T: -4 QT: 432 QTc: 444 Interpretive Statements SINUS RHYTHM WITH OCCASIONAL VENTRICULAR PREMATURE COMPLEXES WITH OCCASIONAL SUPRAVENTRICULAR PREMATURE COMPLEXES BORDERLINE LEFT AXIS DEVIATION Electronically Signed On 05-23-2016 15:03:48 EST by Chanel Richey
--- NOTE | 2016-05-23 15:26 | Electrocardiograph Report ---
[place] [address] Test Date: 2016-05-21 Pat Name: Gilbert Merida Department: 104 Room: 2A12 Gender: M Dry Wall Applicator: : 1930 Requested By: Tushar Min Order Number: [id number] Reading MD: Chanel Richey Measurements Intervals [place] Rate: 54 P: 234 TX: 179 QRS: 203 QRSD: 105 T: 180 QT: 436 QTc: 423 Interpretive Statements SINUS BRADYCARDIA RIGHT AND LEFT ARM LEADS REVERSED PLEASE REPEAT ECG Electronically Signed On 05-23-2016 15:24:18 EST by Chanel Richey
--- NOTE | 2016-05-23 15:32 | Electrocardiograph Report ---
[place] [address] Test Date: 2016-05-22 Pat Name: Gilbert Merida Department: 112 Room: 2A12 Gender: M Supervisor [employer]: : 1930 Requested By: Seble Kohler Order Number: [id number] Reading MD: Chanel Richey Measurements Intervals [place] Rate: 55 P: 40 UT: 225 QRS: -18 QRSD: 107 T: 28 QT: 473 QTc: 461 Interpretive Statements SINUS BRADYCARDIA WITH FIRST DEGREE AV BLOCK WITH OCCASIONAL VENTRICULAR PREMATURE COMPLEXES PROLONGED QT INTERVAL Electronically Signed On 05-23-2016 15:30:49 EST by Chanel Richey
[2016-05-23] MEDS ORDERED: Nitroglycerin 0.4 MG TAB.SUBL SL PRN (16:43)
--- NOTE | 2016-05-23 18:22 | Event Note ---
Date of Encounter: 05/23/16 Time of Encounter: 18:22 patient seen. has had some clots earlier this afternoon Manually irrigated with NS with small clots returned. irrigated well. light pink on slow irrigation
[2016-05-23] MEDS: *HR* Warfarin 5 MG TABLET PO SCH (18:32)
[2016-05-23] MEDS: traZODone 50 MG TABLET PO SCH (20:19)
[2016-05-23] MEDS: Lidocaine OINT 35.44 GM TUBE TP PRN (20:25)
[2016-05-23] MEDS ORDERED: 0.9 % Sodium Chloride 1,000 ML ONE (21:09)
[2016-05-23] MEDS: Temazepam 15 MG CAPSULE PO PRN (21:10)
[2016-05-24 01:12] LABS: Hematocrit 31.5 % (37.5-50.1); Hemoglobin 10.7 g/dL (12.9-16.9); Mean Corpuscular Hemoglobin 31.8 pg (28.0-33.3); Mean Corpuscular Volume 93.8 fL (83.0-100.0); Mean Platelet Volume 10.7 fL (9.4-12.4); Platelet Count 131 K/mcL (140-400); Red Blood Count 3.36 M/mcL (4.19-5.50)
[2016-05-24 01:18] LABS: INR 1.3; Prothrombin Time 14.3 Seconds (9.4-12.1)
--- NOTE | 2016-05-24 08:11 | Internal Med Progress Note ---
Date of Encounter: 05/24/16 Time of Encounter: 08:11 - Assessment and plan (1) Pulmonary embolism on right Current Visit: Yes Status: Acute Assessment and plan: Continue heparin drip and Coumadin INR is 1.3 Keep APTT close to 50 Monitor CBC due to hematuria High risk of complications from pulmonary emboli and hematuria (2) Bradycardia Current Visit: Yes Status: Acute Assessment and plan: Likely secondary to beta blockers Decreased dose of Beta nathanael, the patient takes atenolol 50 mg at home started 25 mg daily today (3) Aortic aneurysm Current Visit: Yes Status: Acute Assessment and plan: Follow as outpatient with CT scan in a year Qualifiers: Aortic location: abdominal aorta Presence of rupture: without rupture Qualified Code(s): I71.4 - Abdominal aortic aneurysm, without rupture (4) Elevated troponin Current Visit: Yes Status: Acute Assessment and plan: Likely secondary to demand ischemia. First troponin was 0.63 and the second one 0.29 (5) Hematuria Current Visit: Yes Status: Acute Assessment and plan: Followed by urology Still having hematuria Continue Cullen catheter with irrigation (6) Pulmonary hypertension Current Visit: Yes Status: Acute (7) Atrial fibrillation and flutter Current Visit: No Status: Acute Assessment and plan: Signed AGAINST MEDICAL ADVICE the day prior to admission when he presented with A. fib with RVR likely provoked by pulmonary emboli Stable at the moment Decreased atenolol down to 25 mg daily due to bradycardia Consider cardiology consult if worse (8) Nephrolithiasis Current Visit: Yes Status: Acute Assessment and plan: Has a large renal calculus on the right kidney Follow with urology as an outpatient - Time Spent With Patient Greater than 35 minutes - Subjective Interval history: Cullen catheter is still having urine that contains blood. Confused at times, denies any chest pain, shortness of breath, no abdominal pain , no dysuria. Had chest pain on the left side upon admission but is asymptomatic at the moment. No diarrhea - Constitutional Vitals: Temp Pulse Resp BP Pulse Ox 97.6 F 59 16 177/90 99 05/24/16 07:06 05/24/16 07:06 05/24/16 07:06 05/24/16 07:06 05/24/16 07:06 General appearance: Present: cooperative, A&O X 3, pleasant, underweight, answers questions appropriately. Absent: no acute distress - Head Head exam: Present: atraumatic, normocephalic - Eye Eye exam: Present: PERRL, conjuntiva pink, sclera anicteric Pupils: Present: PERRL - Neck Neck exam general surgery: Present: supple, trachea midline. Absent: lymphadenopathy - Respiratory Respiratory exam: Present: CTAB. Absent: accessory muscle use, rales, rhonchi, wheezes - Cardiovascular Cardiovascular exam: Present: RRR, +S1, +S2. Absent: diastolic murmur, gallop, rubs, systolic murmur - GI/Abdominal GI/Abdominal exam: Present: normal bowel sounds, soft, no peritoneal signs. Absent: distended, tenderness - Extremities Exam Extremities exam: Present: warm, radial pulses palpable and symetrical. Absent : calf tenderness, cyanotic, pedal edema - Neurological Exam Neurological exam: Present: CN II-XII intact, oriented X3, no focal deficits. Absent: pronater drift, facial droop, speech deficit - Skin Skin exam: Present: dry, intact Additional comments: Cullen catheter in place, urine still showing signs of hemorrhage Internal Medicine: Result - Labs CBC & Chem 7: 05/24/16 00:58 05/23/16 05:18 Labs: Short CBC 05/24/16 Range/Units 00:58 WBC 12.3 H (4.3-11.1) K/mcL Hgb 10.7 L (12.9-16.9) g/dL Hct 31.5 L (37.5-50.1) % Plt Count 131 L (140-400) K/mcL Cardiac Enzymes 05/23/16 05/23/16 Range/Units 15:53 18:44 Troponin I 0.12 H* 0.11 H* (0-0.03) ng/mL - ABG Interpretation ABG results: PT/INR, D-dimer PT 14.3 Seconds (9.4-12.1) H 05/24/16 00:58 Consult Discharge Plan - Plan Referrals: Pavan Maya Jr, MD [Primary Care Provider] -
[2016-05-24] MEDS: ALPRAZolam 1 MG TABLET PO SCH (08:37)
[2016-05-24] MEDS: Folic Acid 1 MG TABLET PO SCH (08:37)
[2016-05-24] MEDS: predniSONE 20 MG TABLET PO SCH (08:37)
[2016-05-24] MEDS: Aspirin Enteric Coated 81 MG Tablet PO SCH (08:37)
[2016-05-24] MEDS: Finasteride 5 MG TABLET PO SCH (08:37)
--- NOTE | 2016-05-24 10:38 | Urology Progress Note ---
Date of Encounter: 05/24/16 Time of Encounter: 10:37 - Assessment and Plan (1) Right kidney stone Current Visit: Yes Status: Acute (2) Hematuria Current Visit: Yes Status: Acute Assessment and plan: may be able to hold irrigation tomorrow. will watch closely. Progress Note Narrative: patient seen. urine better on slow drip. Objective Initial Vital Signs Temp Pulse Resp BP Pulse Ox 97.8 F 60 14 152/58 99 05/21/16 12:13 05/21/16 12:13 05/21/16 12:13 05/21/16 12:13 05/21/16 12:13 - General physical appearance Present: well developed - Abdomen Present: soft - Genitourinary Present: other (urine slight pink on slow drip) - Labs 05/24/16 00:58 05/23/16 05:18 Consult Discharge Plan - Plan Referrals: Pavan Maya Jr, MD [Primary Care Provider] -
[2016-05-24] MEDS: Heparin 25,000 UNIT/500 ML D5W 25,000 UNIT/500 ML MLS IVC SCH (14:15)
[2016-05-24] MEDS: *HR* Warfarin 5 MG TABLET PO SCH (17:16)
[2016-05-24] MEDS: traZODone 50 MG TABLET PO SCH (19:55)
[2016-05-24] MEDS: Temazepam 15 MG CAPSULE PO PRN (19:55)
[2016-05-25 06:26] LABS: Hematocrit 30.7 % (37.5-50.1); Hemoglobin 10.2 g/dL (12.9-16.9); Mean Corpuscular HGB Conc 33.2 g/dL (31.6-35.5); Mean Corpuscular Volume 96.2 fL (83.0-100.0); Mean Platelet Volume 11.4 fL (9.4-12.4); Platelet Count 133 K/mcL (140-400); Red Blood Count 3.19 M/mcL (4.19-5.50); Red Cell Distribution Width 13.1 % (11.5-14.5)
[2016-05-25 06:35] LABS: Activated Partial Thrombo Time 41.8 Seconds (26.0-36.0)
[2016-05-25 06:36] LABS: INR 2.2; Prothrombin Time 24.3 Seconds (9.4-12.1)
[2016-05-25 06:41] LABS: BUN/Creatinine Ratio 33 (6-26); Blood Urea Nitrogen 26 mg/dL (8-26); Calcium 8.7 mg/dL (8.6-10.8); Carbon Dioxide 28 mEq/L (19-29); Chloride 105 mEq/L (98-109); Glucose 108 mg/dL (70-99); Osmolality,Calculated 295 (280-300); Sodium 140 mEq/L (136-145); eGFR For African Americans > 60 (> 60); eGFR For Non-African Americans > 60 (> 60)
[2016-05-25] MEDS: Heparin 25,000 UNIT/500 ML D5W 25,000 UNIT/500 ML MLS IVC SCH (08:34)
[2016-05-25] MEDS: ALPRAZolam 1 MG TABLET PO SCH (08:42)
[2016-05-25] MEDS: predniSONE 20 MG TABLET PO SCH (08:42)
[2016-05-25] MEDS: Aspirin Enteric Coated 81 MG Tablet PO SCH (08:43)
[2016-05-25] MEDS: Folic Acid 1 MG TABLET PO SCH (08:43)
[2016-05-25] MEDS: Finasteride 5 MG TABLET PO SCH (08:43)
--- NOTE | 2016-05-25 09:47 | Urology Progress Note ---
Date of Encounter: 05/25/16 Time of Encounter: 09:46 - Assessment and Plan (1) Right kidney stone Current Visit: Yes Status: Acute (2) Hematuria Current Visit: Yes Status: Acute Assessment and plan: resolving. plan on removing cath tomorrow. Progress Note Narrative: patient seen. urine clear off irrigation. Objective Initial Vital Signs Temp Pulse Resp BP Pulse Ox 97.8 F 60 14 152/58 99 05/21/16 12:13 05/21/16 12:13 05/21/16 12:13 05/21/16 12:13 05/21/16 12:13 - General physical appearance Present: well developed - Abdomen Present: soft - Labs 05/25/16 05:38 05/25/16 05:38 Diabetes panel 05/25/16 Range/Units 05:38 Sodium 140 (136-145) mEq/L Potassium 4.0 (3.5-4.5) mEq/L Chloride 105 (98-109) mEq/L Carbon Dioxide 28 (19-29) mEq/L BUN 26 (8-26) mg/dL Creatinine 0.78 (0.72-1.25) mg/dL Glucose 108 H (70-99) mg/dL Calcium 8.7 (8.6-10.8) mg/dL Calcium panel 05/25/16 Range/Units 05:38 Calcium 8.7 (8.6-10.8) mg/dL Pituitary panel 05/25/16 Range/Units 05:38 Sodium 140 (136-145) mEq/L Potassium 4.0 (3.5-4.5) mEq/L Chloride 105 (98-109) mEq/L Carbon Dioxide 28 (19-29) mEq/L BUN 26 (8-26) mg/dL Creatinine 0.78 (0.72-1.25) mg/dL Glucose 108 H (70-99) mg/dL Calcium 8.7 (8.6-10.8) mg/dL Adrenal panel 05/25/16 Range/Units 05:38 Sodium 140 (136-145) mEq/L Potassium 4.0 (3.5-4.5) mEq/L Chloride 105 (98-109) mEq/L Carbon Dioxide 28 (19-29) mEq/L BUN 26 (8-26) mg/dL Creatinine 0.78 (0.72-1.25) mg/dL Glucose 108 H (70-99) mg/dL Calcium 8.7 (8.6-10.8) mg/dL Consult Discharge Plan - Plan Referrals: Pavan Maya Jr, MD [Primary Care Provider] - (web request)
--- NOTE | 2016-05-25 10:41 | Internal Med Progress Note ---
Date of Encounter: 05/25/16 Time of Encounter: 10:38 - Assessment and plan (1) Pulmonary embolism on right Current Visit: Yes Status: Acute Assessment and plan: Discontinue heparin drip May continue Coumadin INR is 2.2 Monitor CBC due to hematuria If hematuria does not improve, an IVC filter should be considered High risk of complications from pulmonary emboli and hematuria (2) Bradycardia Current Visit: Yes Status: Acute Assessment and plan: Likely secondary to beta blockers Decreased dose of Beta nathanael, the patient takes atenolol 50 mg at home Reduced dose of atenolol down to 25 mg daily (3) Aortic aneurysm Current Visit: Yes Status: Acute Assessment and plan: Follow as outpatient with CT scan in a year Qualifiers: Aortic location: abdominal aorta Presence of rupture: without rupture Qualified Code(s): I71.4 - Abdominal aortic aneurysm, without rupture (4) Elevated troponin Current Visit: Yes Status: Acute Assessment and plan: Likely secondary to demand ischemia. First troponin was 0.63 and the second one 0.29 (5) Hematuria Current Visit: Yes Status: Acute Assessment and plan: Followed by urology Still having hematuria Continue Cullen catheter with irrigation (6) Pulmonary hypertension Current Visit: Yes Status: Acute (7) Atrial fibrillation and flutter Current Visit: No Status: Acute Assessment and plan: Signed AGAINST MEDICAL ADVICE the day prior to admission when he presented with A. fib with RVR likely provoked by pulmonary emboli Stable at the moment Decreased atenolol down to 25 mg daily due to bradycardia Consider cardiology consult if worse (8) Nephrolithiasis Current Visit: Yes Status: Acute Assessment and plan: Has a large renal calculus on the right kidney Follow with urology as an outpatient - Time Spent With Patient Greater than 35 minutes - Subjective Interval history: Hematuria is worse than yesterday. Heparin drip was discontinued. Confused at times, denies any chest pain, shortness of breath, no abdominal pain , no dysuria. Had chest pain on the left side upon admission but is asymptomatic at the moment. No diarrhea - Constitutional Vitals: Temp Pulse Resp BP Pulse Ox 97.7 F 57 18 149/79 97 05/25/16 07:21 05/25/16 07:21 05/25/16 07:21 05/25/16 07:21 05/25/16 07:21 General appearance: Present: cooperative, A&O X 3, pleasant, underweight, answers questions appropriately. Absent: no acute distress - Head Head exam: Present: atraumatic, normocephalic - Eye Eye exam: Present: PERRL, conjuntiva pink, sclera anicteric Pupils: Present: PERRL - Neck Neck exam general surgery: Present: supple, trachea midline. Absent: lymphadenopathy - Respiratory Respiratory exam: Present: decreased breath sounds, CTAB. Absent: accessory muscle use, rales, rhonchi, wheezes - Cardiovascular Cardiovascular exam: Present: RRR, +S1, +S2. Absent: diastolic murmur, gallop, rubs, systolic murmur - GI/Abdominal GI/Abdominal exam: Present: normal bowel sounds, soft, no peritoneal signs. Absent: distended, tenderness - Extremities Exam Extremities exam: Present: warm, radial pulses palpable and symetrical. Absent : calf tenderness, cyanotic, pedal edema Additional comments: Cullen catheter in place with gross hematuria - Neurological Exam Neurological exam: Present: CN II-XII intact, oriented X3, no focal deficits. Absent: pronater drift, facial droop, speech deficit - Skin Skin exam: Present: dry, intact Internal Medicine: Result - Labs CBC & Chem 7: 05/25/16 05:38 05/25/16 05:38 Labs: Short CBC 05/25/16 Range/Units 05:38 WBC 11.0 (4.3-11.1) K/mcL Hgb 10.2 L (12.9-16.9) g/dL Hct 30.7 L (37.5-50.1) % Plt Count 133 L (140-400) K/mcL BMP 05/25/16 05:38 Sodium 140 Potassium 4.0 Chloride 105 Carbon Dioxide 28 BUN 26 Creatinine 0.78 Glucose 108 H Calcium 8.7 - ABG Interpretation ABG results: PT/INR, D-dimer PT 24.3 Seconds (9.4-12.1) H D 05/25/16 05:38 Consult Discharge Plan - Plan Referrals: Pavan Maya Jr, MD [Primary Care Provider] - (web request)
[2016-05-25] MEDS: *HR* Warfarin 5 MG TABLET PO SCH (18:39)
[2016-05-25] MEDS: traZODone 50 MG TABLET PO SCH (21:35)
[2016-05-26 05:00] LABS: Hematocrit 28.3 % (37.5-50.1); Hemoglobin 9.5 g/dL (12.9-16.9); Mean Corpuscular HGB Conc 33.6 g/dL (31.6-35.5); Mean Corpuscular Hemoglobin 31.9 pg (28.0-33.3); Mean Platelet Volume 10.7 fL (9.4-12.4); Platelet Count 132 K/mcL (140-400); Red Blood Count 2.98 M/mcL (4.19-5.50)
[2016-05-26 05:17] LABS: INR 3.7; Prothrombin Time 41.6 Seconds (9.4-12.1)
--- NOTE | 2016-05-26 07:15 | Urology Progress Note ---
Date of Encounter: 05/26/16 Time of Encounter: 07:14 - Assessment and Plan (1) Right kidney stone Current Visit: Yes Status: Acute (2) Hematuria Current Visit: Yes Status: Acute Assessment and plan: resolved. catheter removed. continue finasteride. f/u with urology in 1-2 weeks. Progress Note Narrative: patient seen. did well. urine clear off irrigation. Objective Initial Vital Signs Temp Pulse Resp BP Pulse Ox 97.8 F 60 14 152/58 99 05/21/16 12:13 05/21/16 12:13 05/21/16 12:13 05/21/16 12:13 05/21/16 12:13 - General physical appearance Present: well developed - Abdomen Present: soft - Labs 05/26/16 04:39 05/25/16 05:38 Consult Discharge Plan - Plan Referrals: Pavan Maya Jr, MD [Primary Care Provider] - (web request)
[2016-05-26] MEDS: predniSONE 20 MG TABLET PO SCH (08:48)
[2016-05-26] MEDS: Aspirin Enteric Coated 81 MG Tablet PO SCH (08:48)
[2016-05-26] MEDS: Finasteride 5 MG TABLET PO SCH (08:48)
[2016-05-26] MEDS: ALPRAZolam 1 MG TABLET PO SCH (08:49)
[2016-05-26] MEDS: Folic Acid 1 MG TABLET PO SCH (08:49)
--- NOTE | 2016-05-26 13:07 | Electrocardiograph Report ---
[address] [place] [address] Test Date: 2016-05-23 Pat Name: Gilbert Merida Department: 112 Room: 2A12 Gender: M [employer] Rep[employer]r: : [id number] Requested By: Tushar Min Order Number: [id number] Reading MD: Sam Richey Measurements Intervals [place] Rate: 77 P: AK: 0 QRS: -28 QRSD: 118 T: 48 QT: 422 QTc: 454 Interpretive Statements SINUS RHYTHM WITH FREQUENT PACS POSSIBLE LEFT VENTRICULAR HYPERTROPHY POSSIBLE SEPTAL MYOCARDIAL INFARCTION, OF INDETERMINATE AGE Electronically Signed On 05-26-2016 13:06:05 EST by Sam Richey
--- NOTE | 2016-05-26 13:16 | Internal Med Progress Note ---
Date of Encounter: 05/26/16 Time of Encounter: 13:14 - Assessment and plan (1) Pulmonary embolism on right Current Visit: Yes Status: Acute Assessment and plan: Discontinue heparin drip Hold Coumadin as INR is supratherapeutic INR jumped form 1.3, then 2.2, today is 3.7 Monitor CBC and INR in the morning due to hematuria and anemia If hematuria recurs , an IVC filter should be considered High risk of complications from pulmonary emboli and hematuria (2) Acute blood loss anemia Current Visit: Yes Status: Acute Assessment and plan: Secondary to hematuria Monitor CBC in the morning, consider transfusion if hemoglobin drops below 7 (3) Bradycardia Current Visit: Yes Status: Acute Assessment and plan: Likely secondary to beta blockers Decreased dose of Beta nathanael, the patient takes atenolol 50 mg at home Reduced dose of atenolol down to 25 mg daily (4) Aortic aneurysm Current Visit: Yes Status: Acute Assessment and plan: Follow as outpatient with CT scan in a year Qualifiers: Aortic location: abdominal aorta Presence of rupture: without rupture Qualified Code(s): I71.4 - Abdominal aortic aneurysm, without rupture (5) Elevated troponin Current Visit: Yes Status: Acute Assessment and plan: Likely secondary to demand ischemia. First troponin was 0.63 and the second one 0.29 (6) Hematuria Current Visit: Yes Status: Acute Assessment and plan: Followed by urology Still having hematuria Discontinued Cullen catheter with irrigation (today) Follow with urology as outpatient in 1-2 weeks (7) Pulmonary hypertension Current Visit: Yes Status: Acute (8) Atrial fibrillation and flutter Current Visit: No Status: Acute Assessment and plan: Signed AGAINST MEDICAL ADVICE the day prior to admission when he presented with A. fib with RVR likely provoked by pulmonary emboli Stable at the moment Decreased atenolol down to 25 mg daily due to bradycardia Consider cardiology consult if worse (9) Nephrolithiasis Current Visit: Yes Status: Acute Assessment and plan: Has a large renal calculus on the right kidney Follow with urology as an outpatient - Subjective Interval history: Had hematuria yestereday, Folwy was removed today by Urology. Heparin drip was discontinued on 05/25/16 Denies any chest pain, shortness of breath, no abdominal pain, no dysuria. Had chest pain on the left side upon admission but is asymptomatic at the moment. No diarrhea - Constitutional Vitals: Temp Pulse Resp BP Pulse Ox 98.3 F 42 12 105/58 96 05/26/16 11:53 05/26/16 11:53 05/26/16 11:53 05/26/16 11:53 05/26/16 11:53 General appearance: Present: cooperative, A&O X 3, pleasant, underweight, answers questions appropriately. Absent: no acute distress - Head Head exam: Present: atraumatic, normocephalic - Eye Eye exam: Present: PERRL, conjuntiva pink, sclera anicteric Pupils: Present: PERRL - Neck Neck exam general surgery: Present: supple, trachea midline. Absent: lymphadenopathy - Respiratory Respiratory exam: Present: decreased breath sounds, CTAB. Absent: accessory muscle use, rales, rhonchi, wheezes - Cardiovascular Cardiovascular exam: Present: RRR, +S1, +S2. Absent: diastolic murmur, gallop, rubs, systolic murmur - GI/Abdominal GI/Abdominal exam: Present: normal bowel sounds, soft, no peritoneal signs. Absent: distended, tenderness - Extremities Exam Extremities exam: Present: warm, radial pulses palpable and symetrical. Absent : calf tenderness, cyanotic, pedal edema - Neurological Exam Neurological exam: Present: CN II-XII intact, oriented X3, no focal deficits. Absent: pronater drift, facial droop, speech deficit - Skin Skin exam: Present: dry, intact Internal Medicine: Result - Labs CBC & Chem 7: 05/26/16 04:39 05/25/16 05:38 Labs: Short CBC 05/26/16 Range/Units 04:39 WBC 10.0 (4.3-11.1) K/mcL Hgb 9.5 L (12.9-16.9) g/dL Hct 28.3 L (37.5-50.1) % Plt Count 132 L (140-400) K/mcL - ABG Interpretation ABG results: PT/INR, D-dimer PT 41.6 Seconds (9.4-12.1) H D 05/26/16 04:39 Consult Discharge Plan - Plan Referrals: Pavan Maya Jr, MD [Primary Care Provider] - (web request)
[2016-05-26] MEDS ORDERED: Warfarin perPT PO PRN (18:00)
[2016-05-26] MEDS: traZODone 50 MG TABLET PO SCH (20:29)
[2016-05-27 04:28] LABS: Hemoglobin 9.7 g/dL (12.9-16.9); Mean Corpuscular HGB Conc 33.4 g/dL (31.6-35.5); Mean Corpuscular Hemoglobin 32.3 pg (28.0-33.3); Mean Corpuscular Volume 96.7 fL (83.0-100.0); Mean Platelet Volume 10.8 fL (9.4-12.4); Platelet Count 147 K/mcL (140-400)
[2016-05-27 04:42] LABS: Prothrombin Time 45.1 Seconds (9.4-12.1)
[2016-05-27 04:49] LABS: BUN/Creatinine Ratio 37 (6-26); Blood Urea Nitrogen 29 mg/dL (8-26); Calcium 8.7 mg/dL (8.6-10.8); Carbon Dioxide 25 mEq/L (19-29); Chloride 107 mEq/L (98-109); Glucose 114 mg/dL (70-99); Osmolality,Calculated 295 (280-300); Potassium 3.8 mEq/L (3.5-4.5); Sodium 139 mEq/L (136-145); eGFR For African Americans > 60 (> 60); eGFR For Non-African Americans > 60 (> 60)
[2016-05-27 07:52] VITALS: BP 154/67
--- NOTE | 2016-05-27 08:42 | Discharge Summary ---
Date of Encounter: 05/27/16 Time of Encounter: 08:36 - Discharge Diagnosis (1) Frail elderly Priority: Primary Status: Acute (2) Hematuria Priority: Primary Status: Acute (3) Pulmonary embolism Priority: Primary Status: Acute Qualifiers: Pulmonary embolism type: other Chronicity: acute Acute cor pulmonale presence: without acute cor pulmonale Qualified Code(s): I26.99 - Other pulmonary embolism without acute cor pulmonale (4) Right kidney stone Priority: Secondary Status: Acute (5) Atrial fibrillation and flutter Priority: Secondary Status: Acute - Discharge Medications Prescriptions: Finasteride [Proscar] 5 mg PO DAILY #30 tablet Tamsulosin [Flomax] 0.4 mg PO DAILY #30 capsule Warfarin [Coumadin] 2.5 mg PO 1800 #30 tablet Home Medications: Albuterol Sulfate [Proair Hfa] 2 puff IH Q6H PRN 05/21/16 [History] Alprazolam [Xanax 1 MG Tablet] 1 mg PO QAM 05/21/16 [History] Aspirin [Lo-Dose Aspirin EC] 81 mg PO DAILY 05/21/16 [History] Atenolol [Tenormin] 50 mg PO DAILY 05/21/16 [History] Atorvastatin Calcium [Lipitor] 80 mg PO DAILY 05/21/16 [History] Citalopram [CeleXA] 20 mg PO DAILY 05/21/16 [History] Donepezil [Aricept] 5 mg PO HS 05/21/16 [History] Folic Acid 1 mg PO DAILY 05/21/16 [History] Ginkgo Biloba 120 mg PO DAILY 05/21/16 [History] Ibuprofen [Motrin] 800 mg PO BID 05/21/16 [History] Isosorbide DInitrate [Isosorbide Dinitrate] 20 mg PO TID 05/21/16 [History] Multivit-Min/FA/Lycopen/Lutein [Centrum Silver Tablet] 1 tab PO DAILY 05/21/16 [ History] Ranitidine HCl [Acid Block Saw Operator] 150 mg PO BID 05/21/16 [History] Temazepam [Restoril] 30 mg PO HS 05/21/16 [History] TraZODone 100 mg PO HS 05/21/16 [History] Finasteride [Proscar] 5 mg PO DAILY #30 tablet 05/27/16 [Rx] Tamsulosin [Flomax] 0.4 mg PO DAILY #30 capsule 05/27/16 [Rx] Warfarin [Coumadin] 2.5 mg PO 1800 #30 tablet 05/27/16 [Rx] Allergies/Adverse Reactions: Allergies No Known Allergies Allergy (Verified 05/20/16 23:40) Date of admission: 05/22/16 13:26 Primary care physician: Pavan Maya Jr, MD Consults: 05/23/16 13:59 Consult to Nutrition [CONS] Routine Comment: Consulting Provider: NUTRITION Reason for Dietary Consult: Diet Education Discharging clinician: Dmitriy Jeffery Anticipated date of discharge: 05/27/16 - Patient Status Disposition: Home, Self-Care Condition: Fair Functional capacity at discharge: independent ambulation Overall status at discharge: patient is back to baseline - Discharge Instructions Follow Up With: Management,Anticoagulation [Other] - 05/29/16 2:00 pm (Please arrive 5 mins before your scheduled appointment time. Please bring all medication bottles of any meds you are currently taking, presciption and over the counter. Also please bring your green discharge folder with your paper work in it. If you have any questions please feel free to call. Thank you!!) Pavan Maya Jr, MD [Primary Care Provider] - 05/30/16 9:15 am () - Diet and Activity Activity: resume usual activities as tolerated (no exertion at least for 2 weeks ) Diet: advance to your usual diet Interval History: Mr. Merida is a 85 year old male with past medical history hypertension, CAD, dementia and tobacco use. He presented yesterday to our ED with a chief complaint of left-sided chest pain and was diagnosed with atrial fibrillation with RVR and acute pulmonary embolism. Patient refused admission and left AGAINST MEDICAL ADVICE. This morning, his primary care physician convinced him to come back to our ED. Yesterday night, patient woke up because of left-sided chest pain that radiated to his left arm. He took 3 pills of nitroglycerin without any relief. No shortness of breath. No syncope. No abdominal pain. No dysuria. No focal deficit. No headache. No history of prior intracranial bleeding. He also complains of intermittent chronic hematuria for months but it has worsened in the past 3 days. He had an episode of nephrolithiasis past but refused any treatment. No family history of DVT. In our ED, he was started on heparin drip. Hospital course: 05/21/16: Right sided pulmonary emboli more severe within the right lower lobe. Enlargement of the main pulmonary artery suggestive of pulmonary arterial hypertension. Bilateral lower extremity venous ultrasound exam was negative for DVT. echo showed normal LVEF of 55% no evidence of Pulmonary hypertension detected. Continue heparin drip due to mild hematuria. Urology was consulted and he had continuous bladder irrigation with normal saline via a 3 way catheter. he remianed hemodynaically stable and the hematuria resolved, matti catheter was taken out, his anti coagulation was changed to coumadin. he is still supratehrapetic today with INR at 4, goal of 2-3, denies any hematuria or bleeding from any other sites at this time. He was instructed to hold the Coumadin until 9, and to restart at 2.5 daily. He was given referral to INR clinic to follow up as OP for INR monitoring. he was saturating well on room air and had no chest pain or sob he will f/u with his PCP for the duration of AC. Time spent discussing smoking cessation with patient: more than 10 minutes - Time Spent with Patient Total time spent providing and/or coordinating discharge services: Greater than 30 minutes - Constitutional Vitals: Temp Pulse Resp BP Pulse Ox 97.8 F 61 16 154/67 95 05/27/16 07:51 05/27/16 07:51 05/27/16 07:51 05/27/16 07:51 05/27/16 07:51 General appearance: Present: cooperative, A&O X 3, pleasant, underweight, answers questions appropriately. Absent: no acute distress Exam: General appearance: Present: cooperative, A&O X 3, pleasant, underweight, answers questions appropriately. Absent: no acute distress - Head Head exam: Present: atraumatic, normocephalic - Eye Eye exam: Present: PERRL, conjuntiva pink, sclera anicteric Pupils: Present: PERRL - Neck Neck exam general surgery: Present: supple, trachea midline. Absent: lymphadenopathy - Respiratory Respiratory exam: Present: decreased breath sounds, CTAB. Absent: accessory muscle use, rales, rhonchi, wheezes - Cardiovascular Cardiovascular exam: Present: RRR, +S1, +S2. Absent: diastolic murmur, gallop, rubs, systolic murmur - GI/Abdominal GI/Abdominal exam: Present: normal bowel sounds, soft, no peritoneal signs. Absent: distended, tenderness - Extremities Exam Extremities exam: Present: warm, radial pulses palpable and symetrical. Absent : calf tenderness, cyanotic, pedal edema - Neurological Exam Neurological exam: Present: CN II-XII intact, oriented X3, no focal deficits. Absent: pronater drift, facial droop, speech deficit - Skin Skin exam: Present: dry, intact
[2016-05-27] MEDS: ALPRAZolam 1 MG TABLET PO SCH (09:19)
[2016-05-27] MEDS: Aspirin Enteric Coated 81 MG Tablet PO SCH (09:19)
[2016-05-27] MEDS: Folic Acid 1 MG TABLET PO SCH (09:19)
[2016-05-27] MEDS: Finasteride 5 MG TABLET PO SCH (09:20)
[2016-05-27] MEDS: predniSONE 20 MG TABLET PO SCH (09:20)
== END 2016-05-27 10:30 | disposition home or self-care (01) | DRG 176 ==
LOC: 2ANU 11:48 → EMEROO 11:48 → 2ANU 14:52
PROVIDERS: ADMIT Internal Medicine; ATTEND Internal Medicine

== ENCOUNTER 2016-09-13 18:41 | Inpatient (IN) ==
[2016-09-13] MEDS ORDERED: Ondansetron 4 MG/2 ML VIAL IVP ONE (18:53)
[2016-09-13] MEDS ORDERED: *HR* Morphine 2 MG/ML SYRINGE IVP ONE (18:53)
[2016-09-13 19:20] LABS: Basophils % 0.4 %; Eosinophils # 0.3 K/mcL (0.0-0.6); Eosinophils % 3.8 %; Hematocrit 35.9 % (37.5-50.1); Hemoglobin 11.8 g/dL (12.9-16.9); Immature Granulocytes % 0.4 % (0-4); Immature Platelets 2.9 % (1.1-6.1); Lymphocytes # 2.3 K/mcL (0.6-4.6); Lymphocytes % 27.1 %; Mean Corpuscular HGB Conc 32.9 g/dL (31.6-35.5); Mean Corpuscular Hemoglobin 31.3 pg (28.0-33.3); Mean Corpuscular Volume 95.2 fL (83.0-100.0); Mean Platelet Volume 9.9 fL (9.4-12.4); Monocytes # 0.8 K/mcL (0.0-1.3); Monocytes % 9.1 %; Platelet Count 174 K/mcL (140-400); Red Blood Count 3.77 M/mcL (4.19-5.50); Red Cell Distribution Width 13.6 % (11.5-14.5); Segmented Neutrophils % 59.2 %
--- NOTE | 2016-09-13 19:20 | Emergency Department Note ---
Disposition Clinical Impression: Stable angina, Elevated troponin Disposition: Admitted As Inpatient Referrals: Unassigned,Provider [Non-Partnered Physician] - Forms: ED Satisfaction Letter Chest Pain HPI - General Chief Complaint: ED Chest Pain Stated Complaint: chest pain Time Seen by Provider: 09/13/16 18:42 Source: patient Limitations: no limitations Vital Signs Reviewed: Yes Nursing Notes Reviewed: Yes - History of Present Illness Pt complaint: chest pain Onset (ago): hour(s) (10) Duration: intermittent Onset: during rest Pain Location: substernal Severity scale (1-10): 6 Quality: heaviness Pain Radiation: none Improves with: nothing Worsens with: nothing Treatments prior to arrival chest pain: nitroglycerin (14 SL tablets) - Related Data Home Medications Medication Instructions Recorded Confirmed ALPRAZolam [Xanax 1 MG Tablet] 1 mg PO QAM 05/21/16 05/21/16 Albuterol Sulfate [Proair Hfa] 2 puff IH Q6H PRN 05/21/16 05/21/16 Aspirin [Lo-Dose Aspirin EC] 81 mg PO DAILY 05/21/16 05/21/16 Atenolol [Tenormin] 50 mg PO DAILY 05/21/16 05/21/16 Atorvastatin Calcium [Lipitor] 80 mg PO DAILY 05/21/16 05/21/16 Citalopram [CeleXA] 20 mg PO DAILY 05/21/16 05/21/16 Donepezil [Aricept] 5 mg PO HS 05/21/16 05/21/16 Folic Acid 1 mg PO DAILY 05/21/16 05/21/16 Ginkgo Biloba 120 mg PO DAILY 05/21/16 05/21/16 Ibuprofen [Motrin] 800 mg PO BID 05/21/16 05/21/16 Isosorbide DInitrate [Isosorbide 20 mg PO TID 05/21/16 05/21/16 Dinitrate] Multivit-Min/FA/Lycopen/Lutein 1 tab PO DAILY 05/21/16 05/21/16 [Centrum Silver Tablet] Ranitidine HCl [Acid Shell Trim Operator] 150 mg PO BID 05/21/16 05/21/16 Temazepam [Restoril] 30 mg PO HS 05/21/16 05/21/16 traZODone [TraZODone] 100 mg PO HS 05/21/16 05/21/16 Previous Rx's Medication Instructions Recorded Finasteride [Proscar] 5 mg PO DAILY #30 tablet 05/27/16 Tamsulosin [Flomax] 0.4 mg PO DAILY #30 capsule 05/27/16 Warfarin [Coumadin] 2.5 mg PO 1800 #30 tablet 05/27/16 Allergies Allergy/AdvReac Type Severity Reaction Status Date / Time No Known Allergies Allergy Verified 05/20/16 23:40 All systems ED: reviewed and negative except as stated. Constitutional: Denies: fever, chills, weakness Respiratory: Denies: dyspnea, wheezes Chest Pain PMH - Past Medical History Medical history: Reports: asthma, hyperlipidemia, hypertension, myocardial infarction, pulmonary embolus Psychiatric history: Reports: anxiety, depression - Social History Smoking Status: Current every day smoker Alcohol use: Reports: occasionally Drug use: Reports: none Physical Exam - General Limitations: no limitations General appearance: alert, in no apparent distress - Head Head exam: atraumatic, normocephalic, normal inspection - Eye Eye exam: Present: normal appearance, PERRL, EOMI - Expanded Eye Exam Pupils: Left: reactive - ENT ENT exam: normal exam, normal oropharynx, mucous membranes moist - Expanded ENT Exam External ear exam: Present: normal external inspection Mouth exam: Present: normal external inspection Teeth exam: Present: normal inspection Throat exam: Present: normal inspection - Neck Neck exam: Present: normal inspection, full ROM, trachea midline - Chest Chest inspection: Present: normal inspection, symmetric chest wall rise - Respiratory Respiratory exam: Present: normal lung sounds bilaterally - Cardiovascular Cardiovascular exam: Present: regular rate, normal rhythm, normal heart sounds - Abdominal Exam Abdominal exam: Present: soft, Non-Tender. Absent: tenderness, distention, guarding, rebound, rigidity - Extremities Exam Extremities exam: Present: normal inspection, full ROM. Absent: tenderness, pedal edema - Expanded Upper Extremity Exam Shoulder exam: Present: normal inspection, full ROM Arm exam: Present: normal inspection, full ROM Elbow exam: Present: normal inspection, full ROM Forearm/Wrist exam: Present: normal inspection, full ROM Hand exam: Present: normal inspection, full ROM Vascular exam: Normal: capillary refill, radial pulse - Expanded Lower Extremity Exam Hip/Pelvis exam: Present: normal inspection, full ROM Upper leg exam: Present: normal inspection, full ROM Knee exam: Present: normal inspection, full ROM Lower leg exam: Present: normal inspection, full ROM Ankle exam: Present: normal inspection, full ROM Foot/toe exam: Present: normal inspection, full ROM Neurovascular/Tendon exam: Absent: motor deficit, sensory deficit, tendon deficit - Back Exam Back exam: Present: normal inspection, full ROM. Absent: tenderness - Neurological Exam Neurological exam: Present: alert, oriented X3 - Expanded Neurological Exam Patient oriented to: Present: person, place, time Coma Scale Eye Opening: Spontaneous Coma Scale Motor Response: Obeys Commands Coma Scale Verbal Response: Oriented Coma Scale Total: 15 - Psychiatric Psychiatric exam: Present: normal affect, normal mood - Skin Skin exam: Present: warm, dry, intact, normal color Course Vital Signs Temperature 0 F L 09/13/16 18:57 Pulse Rate 59 09/13/16 18:57 Respiratory Rate 18 09/13/16 18:57 Blood Pressure 179/84 09/13/16 18:57 O2 Sat by Pulse Oximetry 100 09/13/16 18:57 Temperature 0 F L 09/13/16 18:57 Pulse Rate 71 09/13/16 19:42 Respiratory Rate 18 09/13/16 19:42 Blood Pressure 164/71 09/13/16 19:42 O2 Sat by Pulse Oximetry 97 09/13/16 19:42 Oxygen Delivery Oxygen Delivery Room Air Chest Pain - MDM Narrative Medical decision making narrative: Dr. Vanessa accepts - Differential Diagnosis Likely: unstable angina pectoris, atypical chest pain, st elevation myocardial infraction, chest pain - Medical Records Medical records reviewed: Yes I reviewed the patient's medical records. - Lab Data Lab results reviewed: Yes I reviewed the patient's lab results. Result diagrams: 09/13/16 19:13 09/13/16 19:13 Lab Results 09/13/16 09/13/16 09/13/16 Range/Units 19:13 19:13 19:13 WBC 8.5 (4.3-11.1) K/mcL RBC 3.77 L (4.19-5.50) M/mcL Hgb 11.8 L (12.9-16.9) g/dL Hct 35.9 L (37.5-50.1) % MCV 95.2 (83.0-100.0) fL MCH 31.3 (28.0-33.3) pg MCHC 32.9 (31.6-35.5) g/dL RDW 13.6 (11.5-14.5) % Plt Count 174 (140-400) K/mcL MPV 9.9 (9.4-12.4) fL Immature Gran % 0.4 (0-4) % Seg Neutrophils % 59.2 % Lymphocytes % 27.1 % Monocytes % 9.1 % Eosinophils % 3.8 % Basophils % 0.4 % Neutrophils # 5.0 (1.6-8.9) K/mcL Lymphocytes # 2.3 (0.6-4.6) K/mcL Monocytes # 0.8 (0.0-1.3) K/mcL Eosinophils # 0.3 (0.0-0.6) K/mcL Basophils # 0.0 (0.0-0.2) K/mcL Immature Plt Fraction 2.9 (1.1-6.1) % PT 12.4 H (9.4-12.1) Seconds INR 1.1 APTT 25.2 L (26.0-36.0) Seconds Sodium 142 (136-145) mEq/L Potassium 4.1 (3.5-4.5) mEq/L Chloride 106 (98-109) mEq/L Carbon Dioxide 28 (19-29) mEq/L BUN 26 (8-26) mg/dL Creatinine 0.95 (0.72-1.25) mg/dL Est GFR ( Amer) > 60 (> 60) Est GFR (Non-Af Amer) > 60 (> 60) BUN/Creatinine Ratio 27 H (6-26) Glucose 101 H (70-99) mg/dL Calculated Osmolality 299 (280-300) Calcium 9.2 (8.6-10.8) mg/dL Troponin I (0-0.03) ng/mL 09/13/16 Range/Units 19:13 WBC (4.3-11.1) K/mcL RBC (4.19-5.50) M/mcL Hgb (12.9-16.9) g/dL Hct (37.5-50.1) % MCV (83.0-100.0) fL MCH (28.0-33.3) pg MCHC (31.6-35.5) g/dL RDW (11.5-14.5) % Plt Count (140-400) K/mcL MPV (9.4-12.4) fL Immature Gran % (0-4) % Seg Neutrophils % % Lymphocytes % % Monocytes % % Eosinophils % % Basophils % % Neutrophils # (1.6-8.9) K/mcL Lymphocytes # (0.6-4.6) K/mcL Monocytes # (0.0-1.3) K/mcL Eosinophils # (0.0-0.6) K/mcL Basophils # (0.0-0.2) K/mcL Immature Plt Fraction (1.1-6.1) % PT (9.4-12.1) Seconds INR APTT (26.0-36.0) Seconds Sodium (136-145) mEq/L Potassium (3.5-4.5) mEq/L Chloride (98-109) mEq/L Carbon Dioxide (19-29) mEq/L BUN (8-26) mg/dL Creatinine (0.72-1.25) mg/dL Est GFR ( Amer) (> 60) Est GFR (Non-Af Amer) (> 60) BUN/Creatinine Ratio (6-26) Glucose (70-99) mg/dL Calculated Osmolality (280-300) Calcium (8.6-10.8) mg/dL Troponin I 0.04 H* (0-0.03) ng/mL - Radiology Data Radiology results reviewed: Yes I reviewed the patient's radiology results. - EKG Data EKG attestation: Yes I reviewed and interpreted this EKG. EKG shows normal: sinus rhythm Rhythm: PVC's [place]/QRS: left axis deviation Heart block present: 1st Degree Interpretation: nonspecific ST-T wave changes
[2016-09-13 19:27] LABS: INR 1.1; Prothrombin Time 12.4 Seconds (9.4-12.1)
[2016-09-13 19:30] LABS: Activated Partial Thrombo Time 25.2 Seconds (26.0-36.0)
[2016-09-13 19:32] LABS: BUN/Creatinine Ratio 27 (6-26); Blood Urea Nitrogen 26 mg/dL (8-26); Calcium 9.2 mg/dL (8.6-10.8); Carbon Dioxide 28 mEq/L (19-29); Chloride 106 mEq/L (98-109); Glucose 101 mg/dL (70-99); Osmolality,Calculated 299 (280-300); Potassium 4.1 mEq/L (3.5-4.5); Sodium 142 mEq/L (136-145); eGFR For African Americans > 60 (> 60); eGFR For Non-African Americans > 60 (> 60)
[2016-09-13] MEDS ORDERED: *HR* Enoxaparin 80 MG/0.8 ML SYRINGE SQ STA (19:42)
[2016-09-13] MEDS ORDERED: Aspirin 81 MG TAB.CHEW PO ONE (19:42)
[2016-09-13] MEDS ORDERED: *HR* Morphine 2 MG/ML SYRINGE IVP PRN (22:53)
[2016-09-13] MEDS ORDERED: Acetaminophen 325 MG TABLET PO PRN (22:53)
[2016-09-13] MEDS ORDERED: Naloxone 0.4 MG/ML INJ IVP PRN (22:53)
[2016-09-13] MEDS ORDERED: Ondansetron 4 MG/2 ML VIAL IVP PRN (22:53)
--- NOTE | 2016-09-13 22:58 | Internal Med History&Physical ---
Date of Encounter: 09/14/16 Time of Encounter: 22:57 Assessment and Plan (1) Anticoagulated on Coumadin Current visit: Yes Status: Acute I will hold Coumadin for now as the patient will be fully anticoagulated with Coumadin and may need cardiac catheterization. (2) Non-ST elevation [place] (NSTEMI) Current visit: Yes Status: Acute Patient presented with typical recurrent chest pain throughout the day yesterday. Initial troponin was 0.04. Subsequently it increased to 0.2. Patient currently is chest pain-free. EKG shows no ST elevation. Plan: We will start heparin drip 12 hours after he received 1 mg/kg Lovenox in the emergency department. Nothing by mouth. Consult cardiology for possible need for catheterization. Nitroglycerin sublingual for chest pain. Morphine IV for pain uncontrolled by nitroglycerin. (3) Depression Current visit: Yes Status: Acute Continue with Celexa. Qualifiers: Depression Type: reactive depression Qualified Code(s): F32.9 - Major depressive disorder, single episode, unspecified (4) Essential hypertension Current visit: Yes Status: Acute Resume home dose of atenolol. (5) History of pulmonary embolism Current visit: Yes Status: Acute Patient is on anticoagulation with Coumadin at home. INR was subtherapeutic at 1.4. He received 1 dose of Lovenox in the emergency department. His chest pain could be related to recurrent PE however this is unlikely given that the pain is relieved with nitroglycerin and the patient is not tachycardic or hypoxic. He will be fully anticoagulated with IV heparin. (6) DVT prophylaxis Current visit: Yes Status: Acute Currently fully anticoagulated. (7) Chest pain Current visit: No Status: Acute We will treat this with nitroglycerin. Qualifiers: Chest pain type: precordial pain Qualified Code(s): R07.2 - Precordial pain Internal Medicine - H&P: HPI Chief complaint: Chest pain Admitted From: Emergency Dept Plans for Post Hospital Care: Home History of present illness: Mr. Merida is a 85 year old male with past medical history significant for pulmonary embolism on anticoagulation with Coumadin, coronary artery disease status post myocardial infarction and angioplasty in 1989 who presents to the hospital for evaluation of chest pain. He reports precordial chest pain that started this morning, pressure and squeezing-like, improved with sublingual nitroglycerin however the pain recurred throughout the day. Associated with shortness of breath. He took a total of 9 tablets of nitroglycerin before he decided to come to the hospital. In the emergency department his EKG was nondiagnostic. Troponin was elevated at 0.04. A 10 point review of systems was negative except as above Past medical history: As listed above. Family history negative for premature coronary artery disease in both parents. Past Med Surg Social Fam HX - Past Medical History Medical history: asthma, hyperlipidemia, hypertension, myocardial infarction, pulmonary embolus Psychiatric history: anxiety, depression - Social History Smoking Status: Current every day smoker Smokeless Tobacco Status: No Alcohol use: occasionally Drug use: none - Family History Father Living Status: Cause of : accident Maternal Grandfather Living Status: Age at : 58 Cause of : [place] Hx Family Cardiac Disorders: Yes ([place]) Internal Medicine - H&P: Meds ALPRAZolam [Xanax 1 MG Tablet] 1 mg PO QAM 05/21/16 [History] Albuterol Sulfate [Proair Hfa] 2 puff IH Q6H PRN 05/21/16 [History] Aspirin [Lo-Dose Aspirin EC] 81 mg PO DAILY 05/21/16 [History] Atenolol [Tenormin] 50 mg PO DAILY 05/21/16 [History] Atorvastatin Calcium [Lipitor] 80 mg PO DAILY 05/21/16 [History] Citalopram [CeleXA] 20 mg PO DAILY 05/21/16 [History] Donepezil [Aricept] 5 mg PO HS 05/21/16 [History] Folic Acid 1 mg PO DAILY 05/21/16 [History] Ginkgo Biloba 120 mg PO DAILY 05/21/16 [History] Ibuprofen [Motrin] 800 mg PO BID 05/21/16 [History] Isosorbide DInitrate [Isosorbide Dinitrate] 20 mg PO TID 05/21/16 [History] Multivit-Min/FA/Lycopen/Lutein [Centrum Silver Tablet] 1 tab PO DAILY 05/21/16 [ History] Ranitidine HCl [Acid Morning News Producer] 150 mg PO BID 05/21/16 [History] Temazepam [Restoril] 30 mg PO HS 05/21/16 [History] traZODone [TraZODone] 100 mg PO HS 05/21/16 [History] Finasteride [Proscar] 5 mg PO DAILY #30 tablet 05/27/16 [Rx] Tamsulosin [Flomax] 0.4 mg PO DAILY #30 capsule 05/27/16 [Rx] Warfarin [Coumadin] 2.5 mg PO 1800 #30 tablet 05/27/16 [Rx] Allergies No Known Allergies Allergy (Verified 05/20/16 23:40) All Systems PM: A 10-system review of systems was performed and is negative for pertinent findings except as documented above in the HPI. - Constitutional Vitals: Temp Pulse Resp BP Pulse Ox 98.0 F 63 16 158/63 94 09/13/16 20:50 09/13/16 20:50 09/13/16 20:50 09/13/16 20:50 09/13/16 20:50 General appearance: Present: A&O X 3 - Eye Eye exam: Present: PERRL, conjuntiva pink, sclera anicteric Pupils: Present: PERRL - Cardiovascular Cardiovascular exam: Present: RRR, +S1, +S2. Absent: diastolic murmur, gallop, rubs, systolic murmur - GI/Abdominal GI/Abdominal exam: Present: normal bowel sounds, soft, no peritoneal signs. Absent: distended, tenderness - Extremities Exam Extremities exam: Present: warm, radial pulses palpable and symetrical. Absent : calf tenderness, cyanotic, pedal edema - Neurological Exam Neurological exam: Present: CN II-XII intact, oriented X3, no focal deficits. Absent: pronater drift, facial droop, speech deficit - Skin Skin exam: Present: dry, intact Internal Med - H&P Results - Labs CBC & Chem 7: 09/13/16 19:13 09/13/16 19:13
[2016-09-13] MEDS ORDERED: 0.9 % Sodium Chloride 1,000 ML IVC SCH (23:00)
[2016-09-14] MEDS ORDERED: *HR* Warfarin 2.5 MG TABLET PO SCH (00:45)
[2016-09-14] MEDS: traZODone 50 MG TABLET PO SCH ×2 (00:50→20:20)
[2016-09-14] MEDS: Temazepam 15 MG CAPSULE PO SCH ×2 (00:50→20:20)
--- NOTE | 2016-09-14 00:59 | Internal Med Progress Note ---
Date of Encounter: 09/14/16 - Assessment and plan (1) Anticoagulated on Coumadin Current Visit: Yes Status: Acute (2) Non-ST elevation [place] (NSTEMI) Current Visit: Yes Status: Acute (3) Depression Current Visit: Yes Status: Acute Qualifiers: Depression Type: reactive depression Qualified Code(s): F32.9 - Major depressive disorder, single episode, unspecified (4) Essential hypertension Current Visit: Yes Status: Acute (5) History of pulmonary embolism Current Visit: Yes Status: Acute (6) DVT prophylaxis Current Visit: Yes Status: Acute (7) Chest pain Current Visit: No Status: Acute Qualifiers: Chest pain type: precordial pain Qualified Code(s): R07.2 - Precordial pain - Constitutional Vitals: Temp Pulse Resp BP Pulse Ox 97.6 F 53 16 140/64 96 09/13/16 23:15 09/13/16 23:15 09/13/16 23:15 09/13/16 23:15 09/13/16 23:15 General appearance: Present: A&O X 3 Internal Medicine: Result - Labs CBC & Chem 7: 09/13/16 19:13 09/13/16 19:13 Labs: Cardiac Enzymes 09/13/16 Range/Units 23:13 Troponin I 0.20 H* (0-0.03) ng/mL - ABG Interpretation ABG results: PT/INR, D-dimer PT 12.4 Seconds (9.4-12.1) H 09/13/16 19:13 Consult Discharge Plan - Plan Referrals: Pavan Maya Jr, MD [Primary Care Provider] -
[2016-09-14] MEDS ORDERED: Nitroglycerin 0.4 MG TAB.SUBL SL PRN (01:03)
[2016-09-14 05:18] LABS: Basophils % 0.5 %; Eosinophils # 0.4 K/mcL (0.0-0.6); Eosinophils % 5.3 %; Hematocrit 34.1 % (37.5-50.1); Hemoglobin 11.1 g/dL (12.9-16.9); Immature Granulocytes % 0.6 % (0-4); Lymphocytes # 1.8 K/mcL (0.6-4.6); Lymphocytes % 23.4 %; Mean Corpuscular HGB Conc 32.6 g/dL (31.6-35.5); Mean Corpuscular Hemoglobin 31.1 pg (28.0-33.3); Mean Corpuscular Volume 95.5 fL (83.0-100.0); Mean Platelet Volume 10.1 fL (9.4-12.4); Monocytes # 0.7 K/mcL (0.0-1.3); Monocytes % 8.4 %; Neutrophils # 4.9 K/mcL (1.6-8.9); Platelet Count 154 K/mcL (140-400); Red Blood Count 3.57 M/mcL (4.19-5.50); Red Cell Distribution Width 13.6 % (11.5-14.5); Segmented Neutrophils % 61.8 %
[2016-09-14 05:32] LABS: BUN/Creatinine Ratio 23 (6-26); Blood Urea Nitrogen 19 mg/dL (8-26); Calcium 8.5 mg/dL (8.6-10.8); Carbon Dioxide 26 mEq/L (19-29); Chloride 108 mEq/L (98-109); Chol/HDL Ratio 4.1 (0-4.9); Cholesterol 138 mg/dL (< 200); Glucose 80 mg/dL (70-99); HDL Cholesterol 34 mg/dL (40-59); LDL Cholesterol,Calculated 81 mg/dL (0-99); Magnesium 1.6 mg/dL (1.6-2.6); Osmolality,Calculated 289 (280-300); Potassium 4.3 mEq/L (3.5-4.5); Sodium 139 mEq/L (136-145); Triglycerides 114 mg/dL (< 150); eGFR For African Americans > 60 (> 60); eGFR For Non-African Americans > 60 (> 60)
[2016-09-14] MEDS ORDERED: Heparin 25,000 UNIT/500 ML D5W 25,000 UNIT/500 ML MLS IVC SCH (08:15)
[2016-09-14] MEDS ORDERED: *HR* Heparin 5,000 UNIT/ML VIAL IVP PRN ×2 (08:23)
[2016-09-14] MEDS ORDERED: Finasteride 5 MG TABLET PO SCH (09:00)
--- NOTE | 2016-09-14 10:31 | Cardiology Consult Note ---
Date of Encounter: 09/14/16 Time of Encounter: 09:40 Assessment and Plan (1) Elevated troponin Current Visit: Yes Status: Acute Mr. Merida presents with chest pressure and elevated troponin. He does have a reported history of [place] and reportedly angioplasty but the patient does not remember. Complicating this picture is that he was recently diagnosed with a PE May 21 2016. He had similar chest symptoms and elevated troponin. It also does not appear that he was compliant with coumadin. He tells me he stopped going to coumadin clinic but still thinks he is taking warfarin. He has not had an INR checked since May and INR today is normal. I discussed this with the Hospitalist physician taking care of him. This will need more investigation from them. Nevertheless, it may be reasonable to consider an ischemic workup with [facility] given elevated troponin and chest discomfort with known history of CAD. However , the patient admits to me that he may forget to take his medications. He also reports that there is no one at home to help him. To complicate matters, he has also now developed a possible GIB. At this point, we have decided against an invasive strategy because of the possible bleeding and also importantly because we cannot be confident that the patient will be able to take DAPT daily uninterrupted. His echo does show preserved LVEF. Recommend continuing aspirin if patient can tolerate it. He will remain on statin and atenolol. May consider changing Isordil to Imdur so that he can take just once daily instead of TID to help with compliance. We will sign off. Please call with questions. Discussion w patient/family: The assessment and plan as outlined above was discussed with the patient and/or family members who expressed understanding and agreement. All questions were answered. Thank you for involving us in the care of your patient. Please call with any questions. History of Present Illness Consult date: 09/14/16 Requesting physician: Alex Vanessa Consult reason: Elevated Troponin Chief complaint: Chest pain History of present illness: Mr. Merida is a 85 year old male who presents with chest pain. He says that over the past 7 days, he's had 4 episodes of substernal pressure non-radiating that lasts about 2 hours. It can occur with or without exertion. He's tried to use nitro but his pill bottle is old. He otherwise has baseline SOB unchanged. He denies the feeling of palpitations, pre syncopal symptoms or syncope. He tells me he had a few [place]'s back in the 90's and did not have a LHC. He was also recently seen in the ER 05/21/2016 for chest pain/palpitations and was found to have a PE. He was started on coumadin but didn't follow up with the coumadin clinic. His presenting INR is within the normal range. Looking through [facility] labs, INR's have not been checked since May. Past Med Surg Social Fam HX - Past Medical History Attestation: Yes The following information was validated with the patient. Medical history: asthma, hyperlipidemia, hypertension, myocardial infarction, pulmonary embolus Psychiatric history: anxiety, depression - Social History Smoking Status: Current every day smoker Smokeless Tobacco Status: No Alcohol use: occasionally Drug use: none - Family History Father Living Status: Cause of : accident Maternal Grandfather Living Status: Age at : 58 Cause of : [place] Hx Family Cardiac Disorders: Yes ([place]) Medications and Allergies ALPRAZolam [Xanax 1 MG Tablet] 1 mg PO QAM 05/21/16 [History] Albuterol Sulfate [Proair Hfa] 2 puff IH Q6H PRN 05/21/16 [History] Aspirin [Lo-Dose Aspirin EC] 81 mg PO DAILY 05/21/16 [History] Atenolol [Tenormin] 50 mg PO DAILY 05/21/16 [History] Atorvastatin Calcium [Lipitor] 80 mg PO DAILY 05/21/16 [History] Citalopram [CeleXA] 20 mg PO DAILY 05/21/16 [History] Donepezil [Aricept] 5 mg PO HS 05/21/16 [History] Folic Acid 1 mg PO DAILY 05/21/16 [History] Ginkgo Biloba 120 mg PO DAILY 05/21/16 [History] Ibuprofen [Motrin] 800 mg PO BID 05/21/16 [History] Isosorbide DInitrate [Isosorbide Dinitrate] 20 mg PO TID 05/21/16 [History] Multivit-Min/FA/Lycopen/Lutein [Centrum Silver Tablet] 1 tab PO DAILY 05/21/16 [ History] Ranitidine HCl [Acid Percussion Instructor] 150 mg PO BID 05/21/16 [History] Temazepam [Restoril] 30 mg PO HS 05/21/16 [History] traZODone [TraZODone] 100 mg PO HS 05/21/16 [History] Finasteride [Proscar] 5 mg PO DAILY #30 tablet 05/27/16 [Rx] Tamsulosin [Flomax] 0.4 mg PO DAILY #30 capsule 05/27/16 [Rx] Warfarin [Coumadin] 2.5 mg PO 1800 #30 tablet 05/27/16 [Rx] Allergies No Known Allergies Allergy (Verified 05/20/16 23:40) All Systems Review: A 10-system review of systems was performed and is negative for pertinent findings except as documented above in the HPI. - Cardiovascular Cardiovascular: as per HPI Physical Examination Vital Signs, Last 4 Hours Temp Pulse Resp BP Pulse Ox 09/14/16 06:34 97.6 F 50 15 154/65 97 General: Conversant, No Apparent Distress HEENT: Atraumatic, Mucus Membranes Moist Neck: No JVD, Normal carotid pulses Cardiac: Reg Rate and Rhythm, Normal S1 and S2, No Murmur Lungs: Normal Breath Sounds, No Wheeze, Rales, Rhonchi Neuro: Alert and responsive Abdomen: Soft, Other (bowel sounds present) Extremities: No Edema Results 09/14/16 05:10 09/14/16 05:10 Lab Results 09/13/16 09/14/16 09/14/16 23:13 05:10 05:10 WBC 7.9 Hgb 11.1 L Hct 34.1 L Plt Count 154 APTT Sodium 139 Potassium 4.3 Chloride 108 Carbon Dioxide 26 BUN 19 Creatinine 0.83 Glucose 80 Calcium 8.5 L Magnesium 1.6 Troponin I 0.20 H* 09/14/16 09/14/16 05:10 08:24 WBC Hgb Hct Plt Count APTT 30.6 Sodium Potassium Chloride Carbon Dioxide BUN Creatinine Glucose Calcium Magnesium Troponin I 0.38 H* - Imaging and Cardiology Echo: image reviewed (Some echo images were reviewed at the time patient was getting US done) - EKG Interpretation EKG results cardiology: personally reviewed Consult Discharge Plan - Plan Referrals: Pavan Maya Jr, MD [Primary Care Provider] -
[2016-09-14 11:32] LABS: Bilirubin,Urine Negative (Negative); Blood,Urine Large (Negative); Clarity,Urine Cloudy (Clear); Color,Urine Red (Yellow); Glucose,Urine (UA) Normal (Normal); Ketones,Urine Negative (Negative); Leukocyte Esterase,Urine Small (Negative); Nitrite,Urine Negative (Negative); PH,Urine 6.5 pH Units (5.0-8.0); Protein,Urine 30 mg/dL (Neg-Trace); Specific Gravity,Urine 1.014 (1.010-1.025); Urobilinogen,Urine Normal (Normal)
[2016-09-14 11:35] LABS: Bacteria,Urine None Seen per hpf (None-Few); Hyaline Casts,Urine None Seen per lpf (None-Few); RBC,Urine TNTC per hpf (0-3); Squamous Epithelial Cell,Urine Moderate per lpf (None-Few); WBC,Urine 15-30 per hpf (0-3)
[2016-09-14] MEDS ORDERED: Isosorbide MONOnitrate (24 HR) 30 MG TAB.ER.24H PO SCH (13:15)
[2016-09-14] MEDS: Aspirin Enteric Coated 81 MG Tablet PO SCH (13:16)
[2016-09-14] MEDS: ALPRAZolam 1 MG TABLET PO SCH (13:16)
[2016-09-14] MEDS: Famotidine 20 MG TABLET PO SCH ×2 (13:16→20:20)
[2016-09-14] MEDS: Finasteride 5 MG TABLET PO SCH (13:16)
[2016-09-14] MEDS: 0.9 % Sodium Chloride 1,000 ML IVC SCH ×2 (13:17→22:43)
--- NOTE | 2016-09-14 17:26 | Internal Med Progress Note ---
Date of Encounter: 09/14/16 Time of Encounter: 11:30 - Assessment and plan (1) Chest pain Current Visit: No Status: Acute Assessment and plan: Patient presented originally to the emergency room for chest pain. He is not having chest pain today. He had an echocardiogram today that showed normal LVEF of 55%, normal systolic function, evidence of mild diastolic dysfunction, some mild to moderate valvular dysfunction, and borderline evidence for pulmonary hypertension. Patient was on a heparin drip that has since been DC'd, and is being monitored by telemetry. Does have elevated troponin, 0.38. He has been seen by cardiology and is determined that due to his nonadherence to medication regimen, cardiac cath is not appropriate at this time. Continue telemetry Reconsult cardiology if situation changes Pain control Monitor labs Qualifiers: Chest pain type: precordial pain Qualified Code(s): R07.2 - Precordial pain (2) Hematuria Current Visit: No Status: Acute Assessment and plan: Patient reports urine has been dark like dark cola since he began anticoagulation for it PE in May. We did send a urine this morning, it was dark red and cloudy, with too numerous to count red cells. Heparin drip was stopped immediately and I called urology. I spoke with Dr. Parisi who ordered 1 g of Rocephin IV daily finasteride 5 mg by mouth daily with first dose immediately, stop the heparin drip, IV fluids to flush bladder, and if patient does not have urinary output do a bladder scan and call him immediately. He will see the patient tomorrow if he does not need to come emergently tonight. Family states that patient has history of the same thing in the past with no real resolution. IV fluids Rocephin 1 g IV daily Finasteride 5 mg by mouth daily Call Dr. Parisi if no urine output, bladder scan prior to Monitor hemoglobin and hematocrit labs in the morning (3) Elevated troponin Current Visit: Yes Status: Acute Assessment and plan: Troponin elevated to 0.38. Cardiology saw patient. Due to noncompliance with medication regimen at Coumadin clinic, they feel is appropriate at this time to do LHC since patient cannot remember to take medication. Heparin drip has since been stopped due to hematuria. (4) Anticoagulated on Coumadin Current Visit: Yes Status: Acute Assessment and plan: Plan as above (5) Non-ST elevation [place] (NSTEMI) Current Visit: Yes Status: Acute Assessment and plan: Plan as above (6) Essential hypertension Current Visit: Yes Status: Acute Assessment and plan: Chronic. Continue home medications. (7) History of pulmonary embolism Current Visit: Yes Status: Acute Assessment and plan: PE this year, patient was anticoagulated. On arrival his INR was subtherapeutic. Patient reports that he takes his medication every day without fail, however he has not been going to the Coumadin clinic. We will continue to monitor - Subjective Interval history: Patient was seen and examined about 11:30 this morning. He is alert and awake. Patient denies having chest pain at this time. He presented to the emergency department for evaluation of chest pain that started the morning of admission, he described it as squeezing and recurrent throughout the day. His initial troponin was elevated in the emergency department. Chronic continued to elevate. 0.38. Patient was on a heparin drip. He was seen by cardiology and due to his increased forgetfulness, decision was made not to cath the patient since he could not remember to take medication daily for anticoagulation. He and I spoke about why he was not going to the Coumadin clinic anymore. On arrival his INR was subtherapeutic though he insists that he takes his medication every single day. He says he stopped going to the Coumadin clinic because it was too businesslike and he states that they kept trying to show him magazines instead of treating him medically. He also said that he was upset because he can only get a 30 day supply of Coumadin instead of a 90 day supply. He said he stopped going about for 5 months ago and says he will not return. He says he has Coumadin at home and believes that he has a refill. Talked to him about setting alarm on his cell phone or having his son call him daily to remind him to take his medication. He said neither of those possibilities were possible. A family member has shown up tonight and tells primary nurse that he most certainly could help the patient remember to take his medication daily. We will make cardiology aware of this in the morning. We had sent and urine earlier in the day due to patient stating his urine has looked like dark cola since he had his PE and has been on Coumadin. The urine was returned with too numerous to count red blood cells. He underwent to see the patient he has no abdominal tenderness and denies any urinary symptoms. He is upset that we have harmed him and wants to know what we have done to him. Heparin drip was stopped immediately and urology was notified. I spoke with Dr. Parisi on the phone who ordered Rocephin 1 g, continued IV fluids to flush him, finasteride 5 mg by mouth daily with first dose immediately, stop the heparin, and if patient has no urine output nursing staff is to do a bladder scan and call Dr. Parisi immediately. As of approximately one hour ago primary nurse says that he is still urinating. Dr. Parisi will evaluate the patient tomorrow if he is not called for irrigation tonight. - Constitutional Vitals: Temp Pulse Resp BP Pulse Ox 98.0 F 46 15 142/67 90 09/14/16 14:37 09/14/16 14:37 09/14/16 14:37 09/14/16 14:37 09/14/16 14:37 General appearance: Present: cooperative, A&O X 2, no acute distress, answers questions appropriately - Neck Neck exam general surgery: Present: normal inspection. Absent: lymphadenopathy , tenderness - Respiratory Respiratory exam: Present: CTAB. Absent: decreased breath sounds, rales, respiratory distress, rhonchi, stridor, wheezes - Cardiovascular Cardiovascular exam: Present: RRR, +S1, +S2. Absent: clicks, diastolic murmur, gallop, irregular rhythm, systolic murmur - GI/Abdominal GI/Abdominal exam: Present: normal bowel sounds, soft. Absent: distended, hepatomegaly, mass, rigid, tenderness - Extremities Exam Extremities exam: Present: normal capillary refill, warm, radial pulses palpable and symetrical. Absent: calf tenderness, pedal edema, tenderness - Neurological Exam Neurological exam: Present: alert, oriented X3, no focal deficits, strengths equal and symetr throughout. Absent: facial droop, speech deficit Internal Medicine: Result - Labs CBC & Chem 7: 09/14/16 05:10 09/14/16 05:10 Labs: Short CBC 09/14/16 Range/Units 05:10 WBC 7.9 (4.3-11.1) K/mcL Hgb 11.1 L (12.9-16.9) g/dL Hct 34.1 L (37.5-50.1) % Plt Count 154 (140-400) K/mcL Neutrophils # 4.9 (1.6-8.9) K/mcL BMP 09/14/16 05:10 Sodium 139 Potassium 4.3 Chloride 108 Carbon Dioxide 26 BUN 19 Creatinine 0.83 Glucose 80 Calcium 8.5 L Cardiac Enzymes 09/13/16 09/14/16 Range/Units 23:13 05:10 Troponin I 0.20 H* 0.38 H* (0-0.03) ng/mL Urine 09/14/16 Range/Units 11:20 Urine Color Red A (Yellow) Urine Clarity Cloudy A (Clear) Urine pH 6.5 (5.0-8.0) pH Units Ur Specific [place] 1.014 (1.010-1.025) Urine Protein 30 H (Neg-Trace) mg/dL Urine Glucose (UA) Normal (Normal) mg/dL - ABG Interpretation ABG results: PT/INR, D-dimer PT 12.4 Seconds (9.4-12.1) H 09/13/16 19:13 Consult Discharge Plan - Plan Referrals: Pavan Maya Jr, MD [Primary Care Provider] -
--- NOTE | 2016-09-14 20:29 | Urology - Consult Note ---
Date of Encounter: 09/15/16 Time of Encounter: 20:27 - Assessment and Plan (1) Hematuria Current Visit: Yes Status: Acute Assessment and plan: patient well known to the urology service. history of gross hematuria requiring bladder irrigation. recurrence of gross hematuria with heparin drip. It appears patient has been on coumadin for last 3-4 months and has not had significant hematuria but he may have been subtherapeutic. Urine is clear at this time. multiple potential etiologies for the hematuria including BPH and urothelial malignancy (see previous CT scan from may). Patient has been noncompliant with urology followup. Ideally, (if possible) the patient should hold his coumadin for one week, continue finasteride, and if urine remains clear restart coumadin and watch urine closely as his INR becomes therapeutic. He should undergo an office cystoscopy and depending on findings an outpatient CT urogram. Urology CN:RADHA Consult date: 09/14/16 Reason for consult Urology: Gross Hematuria History of present illness: 85-year-old male on anticoagulation for pulmonary embolism. known to the urology servicebecause of a renal stone 2-3 years ago and gross hematuria in May. He never followed after his hospitalization which required bladder irrigation in May. CT scan at that time revealedabnormality in the renal pelvis which could be concerning for urothelial malignancy. Also with a large prostate and outlet obstruction. Recently, gross hematuria again with anticoagulation. Patient is voiding without the catheter Past Med Surg Social Fam HX - Past Medical History Medical history: asthma, hyperlipidemia, hypertension, myocardial infarction, pulmonary embolus Psychiatric history: anxiety, depression - Social History Smoking Status: Current every day smoker Smokeless Tobacco Status: No Alcohol use: occasionally Drug use: none - Family History Father Living Status: Cause of : accident Maternal Grandfather Living Status: Age at : 58 Cause of : [place] Hx Family Cardiac Disorders: Yes ([place]) Medications and Allergies ALPRAZolam [Xanax 1 MG Tablet] 1 mg PO QAM 05/21/16 [History] Albuterol Sulfate [Proair Hfa] 2 puff IH Q6H PRN 05/21/16 [History] Aspirin [Lo-Dose Aspirin EC] 81 mg PO DAILY 05/21/16 [History] Atenolol [Tenormin] 50 mg PO DAILY 05/21/16 [History] Atorvastatin Calcium [Lipitor] 80 mg PO DAILY 05/21/16 [History] Citalopram [CeleXA] 20 mg PO DAILY 05/21/16 [History] Donepezil [Aricept] 5 mg PO HS 05/21/16 [History] Folic Acid 1 mg PO DAILY 05/21/16 [History] Ginkgo Biloba 120 mg PO DAILY 05/21/16 [History] Ibuprofen [Motrin] 800 mg PO BID 05/21/16 [History] Isosorbide DInitrate [Isosorbide Dinitrate] 20 mg PO TID 05/21/16 [History] Multivit-Min/FA/Lycopen/Lutein [Centrum Silver Tablet] 1 tab PO DAILY 05/21/16 [ History] Ranitidine HCl [Acid Welding Specialist] 150 mg PO BID 05/21/16 [History] Temazepam [Restoril] 30 mg PO HS 05/21/16 [History] traZODone [TraZODone] 100 mg PO HS 05/21/16 [History] Finasteride [Proscar] 5 mg PO DAILY #30 tablet 05/27/16 [Rx] Tamsulosin [Flomax] 0.4 mg PO DAILY #30 capsule 05/27/16 [Rx] Warfarin Sodium [Warfarin Sodium] 2.5 mg PO DAILY 09/14/16 [History] Allergies No Known Allergies Allergy (Verified 05/20/16 23:40) Review of Systems - Constitutional no chills, no fever(s) - EENT Nose, mouth and throat: dizziness, no dry mouth - Cardiovascular chest pain - Gastrointestinal no abdominal pain - Genitourinary hematuria - Musculoskeletal back pain - Integumentary no erythema - Neurological no confusion - Psychiatric no anxiety - Hematologic/Lymphatic no easy bleeding - Allergic/Immunologic no throat swelling Exam Initial Vital Signs Temp Pulse Resp BP Pulse Ox 0 F L 59 18 179/84 100 09/13/16 18:57 09/13/16 18:57 09/13/16 18:57 09/13/16 18:57 09/13/16 18:57 - General physical appearance Present: well developed, no distress (asleep) - Eyes Present: PERRL - ENT Present: normal nares - Neck Present: no masses - Respiratory Present: normal respiratory effort - Abdomen Abdomen: Present: soft - Integumentary Present: no rash - Neurologic Present: normal coordination. Absent: disoriented, confused - Additional Findings urine in bedside urinal appears clear without significant hematuria. Urology Results - Labs 09/15/16 04:13 09/15/16 04:13 Abnormal lab results RBC 3.57 M/mcL (4.19-5.50) L 09/14/16 05:10 Hgb 11.1 g/dL (12.9-16.9) L 09/14/16 05:10 Hct 34.1 % (37.5-50.1) L 09/14/16 05:10 PT 12.4 Seconds (9.4-12.1) H 09/13/16 19:13 Calcium 8.5 mg/dL (8.6-10.8) L 09/14/16 05:10 Troponin I 0.38 ng/mL (0-0.03) H* 09/14/16 05:10 HDL Cholesterol 34 mg/dL (40-59) L 09/14/16 05:10 Urine Color Red (Yellow) A 09/14/16 11:20 Urine Clarity Cloudy (Clear) A 09/14/16 11:20 Urine Protein 30 mg/dL (Neg-Trace) H 09/14/16 11:20 Urine Blood Large (Negative) H 09/14/16 11:20 Ur Leukocyte Esterase Small (Negative) H 09/14/16 11:20 Urine Microscopic RBC TNTC per hpf (0-3) H 09/14/16 11:20 Urine Microscopic WBC 15-30 per hpf (0-3) H 09/14/16 11:20 Ur Squamous Epith Cells Moderate per lpf (None-Few) H 09/14/16 11:20 Ur Culture Indicated? YES (NO) A 09/14/16 11:20 All other labs normal. Consult Discharge Plan - Plan Referrals: Pavan Maya Jr, MD [Primary Care Provider] -
[2016-09-15 05:21] LABS: Basophils % 0.5 %; Eosinophils # 0.3 K/mcL (0.0-0.6); Eosinophils % 4.9 %; Hematocrit 33.3 % (37.5-50.1); Hemoglobin 10.7 g/dL (12.9-16.9); Immature Granulocytes % 0.5 % (0-4); Immature Platelets 2.4 % (1.1-6.1); Lymphocytes # 1.6 K/mcL (0.6-4.6); Lymphocytes % 24.7 %; Mean Corpuscular HGB Conc 32.1 g/dL (31.6-35.5); Mean Corpuscular Volume 96.5 fL (83.0-100.0); Mean Platelet Volume 10.6 fL (9.4-12.4); Monocytes # 0.6 K/mcL (0.0-1.3); Neutrophils # 3.7 K/mcL (1.6-8.9); Platelet Count 134 K/mcL (140-400); Red Blood Count 3.45 M/mcL (4.19-5.50); Red Cell Distribution Width 13.7 % (11.5-14.5); Segmented Neutrophils % 59.4 %
[2016-09-15 05:34] LABS: INR 1.3; Prothrombin Time 14.1 Seconds (9.4-12.1)
[2016-09-15 06:23] LABS: BUN/Creatinine Ratio 25 (6-26); Blood Urea Nitrogen 24 mg/dL (8-26); Calcium 8.3 mg/dL (8.6-10.8); Carbon Dioxide 24 mEq/L (19-29); Chloride 110 mEq/L (98-109); Glucose 74 mg/dL (70-99); Osmolality,Calculated 293 (280-300); Potassium 4.2 mEq/L (3.5-4.5); Sodium 140 mEq/L (136-145); eGFR For African Americans > 60 (> 60); eGFR For Non-African Americans > 60 (> 60)
[2016-09-15] MEDS: Aspirin Enteric Coated 81 MG Tablet PO SCH (08:46)
[2016-09-15] MEDS: ALPRAZolam 1 MG TABLET PO SCH (08:47)
[2016-09-15] MEDS: Famotidine 20 MG TABLET PO SCH ×2 (08:47→22:26)
[2016-09-15] MEDS: Finasteride 5 MG TABLET PO SCH (08:47)
[2016-09-15] MEDS: 0.9 % Sodium Chloride 1,000 ML IVC SCH ×2 (08:48→22:29)
--- NOTE | 2016-09-15 12:11 | Internal Med Progress Note ---
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 Urology f/up appreciated; plan to keep him off Coumadin for 1 week along with Finasteride and slowly restarting anticoagulation and outpatient f/up. Discussed with , patient has a long h/o- noncompliance and would need to be discharged home on Finasteride and f/up with Urology as outpatient fir further workup. (2) Non-ST elevation [place] (NSTEMI) Current Visit: Yes Status: Acute Assessment and plan: Chest pain along with Troponin elevation; Cardiology consult appreciated, recommend outpatient f/up given his noncompliance and difficulty remembering to take all his meds, as he is a poor candidate to take uninterrupted DAPT for 1 year. Continue beta-nathanael, ASA, statin. manager creative services consult for safe discharge, will benefit from [facility] for medication compliance. (3) Chest pain Current Visit: Yes Status: Resolved Qualifiers: Chest pain type: precordial pain Qualified Code(s): R07.2 - Precordial pain (4) Pulmonary embolism Current Visit: Yes Status: Chronic Assessment and plan: h/o- right-sided PE diagnosed in May 2016, discharged home on Coumadin. However patient had no outpatient visits to anticoagulation clinic, his INR at this admission was normal, questionable compliance. No tachycardia or dyspnea now. Will repeat CTA chest and evaluate clot burden and decide whether or not he would benefit from further anticoagulation given his noncompliance. 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 Absent: accessory muscle use, rales, rhonchi, wheezes - Cardiovascular Cardiovascular exam: Present: RRR, +S1, +S2. Absent: diastolic murmur, gallop, rubs, systolic murmur - GI/Abdominal GI/Abdominal exam: Present: normal bowel sounds, soft, no peritoneal signs. Absent: distended, tenderness - Extremities Exam Extremities exam: Present: full ROM, warm, radial pulses palpable and symetrical. Absent: calf tenderness, cyanotic, pedal edema - Neurological Exam Neurological exam: Present: CN II-XII intact, oriented X3, no focal deficits. Absent: pronater drift, facial droop, speech deficit - Skin Skin exam: Present: dry, intact Internal Medicine: Result - Labs CBC & Chem 7: 09/15/16 04:13 09/15/16 04:13 Labs: Short CBC 09/15/16 Range/Units 04:13 WBC 6.3 (4.3-11.1) K/mcL Hgb 10.7 L (12.9-16.9) g/dL Hct 33.3 L (37.5-50.1) % Plt Count 134 L (140-400) K/mcL Neutrophils # 3.7 (1.6-8.9) K/mcL BMP 09/15/16 04:13 Sodium 140 Potassium 4.2 Chloride 110 H Carbon Dioxide 24 BUN 24 Creatinine 0.95 Glucose 74 Calcium 8.3 L - ABG Interpretation ABG results: PT/INR, D-dimer PT 14.1 Seconds (9.4-12.1) H 09/15/16 04:13 - VTE Reasons for not Prescribing Prophylaxis: Medical contraindication Consult Discharge Plan - Plan Referrals: Pavan Maya Jr, MD [Primary Care Provider] -
[2016-09-15] MEDS: traZODone 50 MG TABLET PO SCH (22:26)
[2016-09-15] MEDS: Temazepam 15 MG CAPSULE PO SCH (22:27)
[2016-09-16] MEDS: Aspirin Enteric Coated 81 MG Tablet PO SCH (08:50)
[2016-09-16] MEDS: Famotidine 20 MG TABLET PO SCH (08:50)
[2016-09-16] MEDS: ALPRAZolam 1 MG TABLET PO SCH (08:51)
[2016-09-16] MEDS: Finasteride 5 MG TABLET PO SCH (08:51)
[2016-09-16] MEDS: 0.9 % Sodium Chloride 1,000 ML IVC SCH (08:51)
[2016-09-16 10:36] VITALS: BP 106/58
--- NOTE | 2016-09-16 11:26 | Discharge Summary ---
Date of Encounter: 09/16/16 Time of Encounter: 11:24 - Discharge Diagnosis (1) Hematuria Priority: Primary Status: Acute (2) Non-ST elevation [place] (NSTEMI) Priority: Primary Status: Acute (3) Chest pain Priority: Primary Status: Resolved Qualifiers: Chest pain type: precordial pain Qualified Code(s): R07.2 - Precordial pain (4) Pulmonary embolism Priority: Secondary Status: Chronic Qualifiers: Pulmonary embolism type: other Chronicity: chronic Acute cor pulmonale presence: without acute cor pulmonale Qualified Code(s): I27.82 - Chronic pulmonary embolism (5) Elevated troponin Priority: Primary Status: Acute (6) Essential hypertension Priority: Secondary Status: Chronic - Discharge Medications Home Medications: ALPRAZolam [Xanax 1 MG Tablet] 1 mg PO QAM 05/21/16 [History] Albuterol Sulfate [Proair Hfa] 2 puff IH Q6H PRN 05/21/16 [History] Aspirin [Lo-Dose Aspirin EC] 81 mg PO DAILY 05/21/16 [History] Atenolol [Tenormin] 50 mg PO DAILY 05/21/16 [History] Atorvastatin Calcium [Lipitor] 80 mg PO DAILY 05/21/16 [History] Citalopram [CeleXA] 20 mg PO DAILY 05/21/16 [History] Donepezil [Aricept] 5 mg PO HS 05/21/16 [History] Folic Acid 1 mg PO DAILY 05/21/16 [History] Ginkgo Biloba 120 mg PO DAILY 05/21/16 [History] Ibuprofen [Motrin] 800 mg PO BID 05/21/16 [History] Isosorbide DInitrate [Isosorbide Dinitrate] 20 mg PO TID 05/21/16 [History] Multivit-Min/FA/Lycopen/Lutein [Centrum Silver Tablet] 1 tab PO DAILY 05/21/16 [ History] Ranitidine HCl [Acid Dynamite Packing Machine Feeder] 150 mg PO BID 05/21/16 [History] Temazepam [Restoril] 30 mg PO HS 05/21/16 [History] traZODone [TraZODone] 100 mg PO HS 05/21/16 [History] Finasteride [Proscar] 5 mg PO DAILY #30 tablet 05/27/16 [Rx] Tamsulosin [Flomax] 0.4 mg PO DAILY #30 capsule 05/27/16 [Rx] Allergies/Adverse Reactions: Allergies No Known Allergies Allergy (Verified 05/20/16 23:40) Procedures/tests Complete & Pending: Procedures Performed prior 72 hours Category Date Time Status CTA chest [CT angio chest] [CT] Routine Cat Scan 09/15/16 17:18 Completed Date of admission: 09/14/16 18:33 Primary care physician: Pavan Maya Jr, MD Discharging clinician: Rhianna Chavez Anticipated date of discharge: 09/16/16 - Patient Status Disposition: Home, Self-Care Condition: Fair Functional capacity at discharge: independent ambulation Overall status at discharge: patient is progressing back to baseline - Discharge Instructions Instructions: Chest Pain (DC), Acute Hematuria (DC), Angina, Valve Maker ( GEN) Follow Up With: Pavan Maya Jr, MD [Primary Care Provider] - 09/24/16 10:15 am Lyndon Parisi MD [Partnered Physician] - 09/29/16 1:15 pm Additional Instructions: F/up with /Urology in 2 weeks - Diet and Activity Activity: resume usual activities as tolerated Diet: low fat, low cholesterol, low salt diet Hospital course: Mr. Merida is a 85 year old male with the above medical problems, was admitted with chest pain. Emergency room workup revealed elevated troponin and patient has been started on IV heparin drip along with aspirin, statin and beta nathanael for non-ST elevation [place] treatment. Echocardiogram was done which showed 55% ejection fraction, mild left-ventricular diastolic dysfunction, inferior wall mild hypokinesis, moderate AR. Cardiology was consulted and patient was noted to be noncompliant with medications as an outpatient and further evaluation for ischemic heart disease with cardiac catheterization was held at this time, as he could not be trusted to complete uninterrupted dual antiplatelet therapy for 1 year. Cardiology signed off and recommended outpatient follow-up. Patient had an episode of right-sided pulmonary embolism in May 2016 and had been discharged home on Coumadin, however he did not have any visits to anticoagulation clinic and presented with normal INR and it is unclear whether he has been taking his Coumadin at home. Furthermore, patient developed gross hematuria with IV heparin drip in the hospital. Urology has been consulted and patient was taken off anticoagulation. Hematuria could be a result of significant prostatomegaly or possible underlying urothelial tumor in renal pelvis per previous CT abdomen. He has been started on finasteride and also completed a limited course of IV Rocephin and is recommended to follow up as an outpatient for further testing including cystoscopy. Given his noncompliance, CT angiogram of chest was repeated which showed no evidence of new or old pulmonary emboli and patient had no evidence of hypoxia or tachycardia or dyspnea while he was here. He is being discharged without anticoagulation at this time except baby aspirin. Patient has been in general adamant about having his way regarding his medical care and is mostly noncompliant even at home, according to his and son. Physical and occupational therapy evaluations have been completed, recommend placement in inpatient rehabilitation. Patient has firmly declined this. rehabilitation services coordinator was consulted to try and set up home health services for visiting nurse to ensure patient compliance and education regarding his medication management. Patient also firmly refused this and just wanted to be discharged home. He is completely alert and oriented and is otherwise medically stable for discharge at this time. - Time Spent with Patient Total time spent providing and/or coordinating discharge services: Greater than 30 minutes (50 min) - Constitutional Vitals: Temp Pulse Resp BP Pulse Ox 97.9 F 51 14 106/58 96 09/16/16 10:33 09/16/16 10:33 09/16/16 10:33 09/16/16 10:33 09/16/16 10:33 General appearance: Present: A&O X 2, answers questions appropriately - Respiratory Respiratory exam: Present: CTAB. Absent: accessory muscle use, rales, rhonchi, wheezes - Cardiovascular Cardiovascular exam: Present: RRR, +S1, +S2. Absent: diastolic murmur, gallop, rubs, systolic murmur - VTE Reasons for not Prescribing Prophylaxis: Medical contraindication
--- NOTE | 2016-09-16 17:23 | Electrocardiograph Report ---
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
== END 2016-09-16 12:55 | disposition home or self-care (01) | DRG 281 ==
LOC: EMEROO 18:41 → 3BNU 18:41 → SUATTDRO 09-14 18:33
PROVIDERS: ADMIT Internal Medicine; ATTEND Internal Medicine